=== PATIENT | female | born 1945 | race Caucasian/White ===

== ENCOUNTER → 2016-08-07 | Outpatient (CLI) | payer MEDICARE ==
[~2016-08-07] MED LIST: CALCTAB7 PO; CIPR500T89 PO; GREE400C PO; LOMO2.5T PO; OMEP20CA3 PO; PRED1TA PO; PRED1TABL PO; REGL10TA6 PO; SIMV40TA2 PO; TYLE325T5 PO; VITAD1000T PO
--- NOTE | 2016-08-07 11:31 | REPMRS ---
Patient History The patient states she has not had a clinical breast exam in over a year. Patient is postmenopausal. Family history of breast cancer in maternal cousin at age 50 or over. Digital Woman Screen Mammo: August 07, 2016 - Exam #: [id number] Bilateral CC and MLO view(s) were taken. Technologist: Zulma Butterfield, Technologist Prior study comparison: July 20, 2015, left breast digital mammo diagnostic unilateral, performed at [facility]. July 05, 2015, digital woman screen mammo performed at [facility]. FINDINGS: There are scattered fibroglandular densities. There has been no change in the appearance of the mammogram from the prior studies. There is a mild amount of residual fibroglandular tissue which is fairly symmetric. There is no interval development of dominant mass, architectural distortion, or clustered microcalcification suggestive of malignancy. ASSESSMENT: BI-RADS/ACR category 1 mammogram. Negative. Recommendation Routine screening mammogram in 1 year (for women over age 40). This mammogram was interpreted with the aid of an FDA-approved computer-aided dectection system. Electronically Signed By: Ramon Dennison MD 08/07/16 [id number]
== END ==
LOC: M WHC 09:50
PROVIDERS: ATTEND Nurse Practitioner Adult Health
DX: Z12.31 Encounter for screening mammogram for malignant neoplasm of breast (principal)

== ENCOUNTER 2020-04-20 12:56 | Emergency (ER) | payer MEDICARE ==
[~2020-04-20] VITALS: Ht 147.3 cm; Wt 100.0 kg
[~2020-04-20 12:56] MED LIST changes: -PRED5TA
[2020-04-20] MEDS ORDERED: PRED5TA (13:05)
--- NOTE | 2020-04-20 14:24 | REP ---
INDICATION: RUQ pain, gallstones before COMPARISON: None. TECHNIQUE: Real time kaiser scale ultrasound examination using curved array transducer. FINDINGS: Gallbladder demonstrates gallstones measuring up to 2.2 cm without significant wall thickening or pericholecystic fluid. No biliary ductal dilatation is appreciated and the common bile duct measures 5 mm diameter. Liver suggests fatty infiltration. The pancreas appears normal. The right kidney is normal in reniform shape without hydronephrosis and measures 9.7 x 4.9 x 4.4 cm. No ascites in the visualized right upper quadrant. IMPRESSION: 1. Cholelithiasis 2. Hepatosteatosis <Electronically signed by Uche Colon > 04/20/20 [id number]
[2020-04-20 14:41] LABS: BASO % 0.3 % (0.0-1.0); EOS % 0.4 % (0.0-3.0); HEMATOCRIT 40.7 % (36.0-47.0); HEMOGLOBIN 12.9 g/dl (12.0-15.5); LYMPH # 1.1 10^3/uL (1.5-5.0); LYMPH % 11.1 % (24.0-44.0); MEAN CORPUSCULAR HGB CONC 31.7 g/dl (32.0-36.5); MEAN CORPUSCULAR VOLUME 94.7 fl (80.0-96.0); MONO # 0.6 10^3/uL (0.0-0.8); MONO % 5.7 % (0.0-5.0); NEUTROPHILS # 8.5 10^3/uL (1.5-8.5); NEUTROPHILS % 82.2 % (36.0-66.0); PLATELET COUNT, AUTOMATED 328 10^3/uL (150-450); WHITE BLOOD COUNT 10.3 10^3/uL (4.0-10.0)
[2020-04-20 15:04] LABS: ALBUMIN 3.4 GM/DL (3.2-5.2); ALT/SGPT 12 U/L (12-78); BILIRUBIN,DIRECT 0.1 MG/DL (0.0-0.2); BILIRUBIN,TOTAL 0.4 MG/DL (0.2-1.0); BLOOD UREA NITROGEN 12 MG/DL (7-18); CALCIUM LEVEL 8.8 MG/DL (8.8-10.2); CARBON DIOXIDE LEVEL 30 MEQ/L (21-32); CHLORIDE LEVEL 104 MEQ/L (98-107); CREATININE FOR GFR 0.71 MG/DL (0.55-1.30); GLOMERULAR FILTRATION RATE > 60.0 (>39); GLUCOSE, FASTING 114 MG/DL (70-100); LIPASE 55 U/L (73-393); SODIUM LEVEL 141 MEQ/L (136-145); TOTAL PROTEIN 6.5 GM/DL (6.4-8.2)
[2020-04-20 15:08] LABS: CK-MB VALUE MASS 2.4 NG/ML (<3.6); CPK CREATINE PHOSPHOKINASE 68 U/L (26-192); MB/CK RELATIVE INDEX 3.53 (< OR =4); TROPONIN I < 0.02 NG/ML (< 0.10)
[2020-04-20 15:18] VITALS: BP 138/79
== END 2020-04-20 15:20 | disposition home or self-care (01) ==
LOC: M ED 12:56
DX: K80.20 Calculus of gallbladder without cholecystitis without obstruction (principal); K76.0 Fatty (change of) liver, not elsewhere classified; R11.0 Nausea; I10 Essential (primary) hypertension; E78.5 Hyperlipidemia, unspecified; M81.0 Age-related osteoporosis without current pathological fracture; Z88.2 Allergy status to sulfonamides; Z79.899 Other long term (current) drug therapy

== ENCOUNTER → 2020-04-20 | Outpatient (REF) | payer MEDICARE ==
[~2020-04-20] MED LIST changes: +PRED5TA
[2020-04-20 17:52] LABS: H PYLORI QUALITATIVE IgG NEGATIVE (NEGATIVE)
== END ==
LOC: M LAB REF 16:14
PROVIDERS: ATTEND Nurse Practitioner Adult Health
DX: R10.9 Unspecified abdominal pain (principal)

== ENCOUNTER → 2020-05-14 | Outpatient (CLI) | payer MEDICARE ==
[~2020-05-14] MED LIST changes: +GASTROGRAFIN SOLUTION 30ML (Q9963) As Ordered ONE; +HYDR-3713 PO; +ISOVUE-370 76% 100ML VIAL As Ordered ONE; +PRED10PA PO; +PRED5TA; +PRIL20TA2 PO; +ZOFR4TAB16 PO
--- NOTE | 2020-05-14 14:44 | REP ---
INDICATION: GENERALIZED ABDOMINAL PAIN. COMPARISON: 09/12/2012. TECHNIQUE: Oral contrast was administered. CT abdomen performed without IV contrast. CT abdomen and pelvis performed with the intravenous administration of 100 cc of Isovue 370. Sagittal and coronal reconstruction images are performed. FINDINGS: Lung bases: Mild fibrotic changes. Liver: There appears to be a subcentimeter cyst at the right dome of the liver and another is seen in the left lobe. Gallbladder: 1.8 cm gallstone with no gallbladder wall thickening and no evidence of significant biliary dilatation. Spleen: Normal. Adrenals: There is invasion of the left adrenal gland by a left retroperitoneal mass. Pancreas: Normal. Kidneys: Normal. Small and large bowel: There are few sigmoid diverticula present. There is no bowel wall thickening. There is no free intraperitoneal air. Free fluid: None. Abdominal aorta: No aneurysm or dissection. Adenopathy/retroperitoneum: There is a very large lobulated soft tissue mass in the left retroperitoneum at the level of the kidneys with its epicenter at about the level of the main left renal artery. That renal artery is encased and severely narrowed. The main left renal vein is also severely narrowed and there is likely invasion. The mass diffusely involves the left psoas muscle at that level. It abuts but does not appear to invade the adjacent left kidney. It abuts the abdominal aorta with obliteration of the fat plane along the left side of the abdominal aorta. The abdominal aorta is displaced toward the right at that level. The mass abuts the L2 vertebral body, with no definite destruction. There is no fat plane between the vertebral body and mass. This mass extends superiorly and invades the inferior aspect of the left adrenal gland. The anterior aspect abuts, but does not invade the pancreas. The mass abuts the celiac artery and superior mesenteric artery. The inferior extent is at about the level of the superior aspect of L5. At that level it is within the left psoas muscle. No other adenopathy is seen. Appendix: Not inflamed. Osseous structures: There are degenerative changes of the spine without compression deformity. Pelvis: There is a bulbous appearance to the cervix with an oval hypoechoic dense abnormality likely representing a mass of the cervix. This measures approximately 2.9 x 4.7 cm. IMPRESSION: Very large left retroperitoneal mass as discussed in detail above encasing and severely narrowing the main left renal artery. There is also narrowing and probable invasion of the main left renal vein. There is diffuse involvement of the left psoas muscle. The fat plane with the adjacent abdominal aorta is obliterated. The extends superiorly and invades the left adrenal gland. There appears to be a mass in the cervix as discussed above. This raises the possibility that the left retroperitoneal mass is metastatic from the cervix. <Electronically signed by Ramon Dennison > 05/14/20 [id number]
== END ==
LOC: M RAD 11:09
PROVIDERS: ATTEND Surgery
DX: D48.3 Neoplasm of uncertain behavior of retroperitoneum (principal)
CPT/HCPCS: 74178; Q9963; Q9967

== ENCOUNTER → 2020-05-28 | Outpatient (REF) | payer MEDICARE ==
[~2020-05-28] MED LIST changes: -GASTROGRAFIN SOLUTION 30ML (Q9963) As Ordered ONE; -ISOVUE-370 76% 100ML VIAL As Ordered ONE
[2020-05-28 13:19] LABS: INR 1.01; PROTHROMBIN TIME 13.5 SECONDS (12.5-14.3)
[2020-05-28 13:20] LABS: PARTIAL THROMBOPLASTIN TIME 36.2 SECONDS (24.2-38.5)
== END ==
LOC: M LAB REF 12:29
PROVIDERS: ATTEND Nurse Practitioner Adult Health
DX: Z01.818 Encounter for other preprocedural examination (principal); Z79.01 Long term (current) use of anticoagulants

== ENCOUNTER → 2020-06-01 | Outpatient (CLI) | payer MEDICARE ==
[~2020-06-01] MED LIST changes: +LIDOCAINE 1% MDV 20ML VIAL As Ordered ONE
[2020-06-01 10:30] VITALS: BP 112/55
--- NOTE | 2020-06-01 17:01 | REP ---
INDICATION: RETROPERITONEAL MASS. COMPARISON: None. TECHNIQUE: The procedure was performed under the direct supervision of Dr. Davalos. The patient has a history of a very large left retroperitoneal mass seen on a previous CT scan dated 05/14/2020. The risks and benefits of the procedure were explained to the patient and informed consent was obtained. The left retroperitoneal mass was localized using CT guidance. The skin was prepped and draped in a sterile fashion. 1% lidocaine was used as a local anesthetic. Using CT guidance a 19/20 gauge coaxial needle biopsy system was inserted and advanced into the mass. Five core biopsy samples were obtained and sent the lab. The patient tolerated the procedure well and there were no immediate complications. After the appropriate amount to monitor convalescence the patient was discharged from the department. FINDINGS: None IMPRESSION: CT-guided left retroperitoneal mass biopsy. <Electronically signed by Andrea Sher > 06/01/20 [id number] <Electronically signed by Mason Davalos > 06/01/20 [id number]
== END ==
LOC: M IRPRO 07:55
PROVIDERS: ATTEND Nurse Practitioner Adult Health
DX: C78.6 Secondary malignant neoplasm of retroperitoneum and peritoneum (principal); R19.00 Intra-abdominal and pelvic swelling, mass and lump, unspecified site

== ENCOUNTER → 2020-07-08 | Outpatient (CLI) | payer MEDICARE ==
[~2020-07-08] MED LIST changes: +ACET650T15 PO; +ALEN70SO PO; +CALCCAP4 PO; +CVS50CAP PO; +LACT20EL PO; -LIDOCAINE 1% MDV 20ML VIAL As Ordered ONE; +NEUR100C PO; +PROC10TA4 PO
--- NOTE | 2020-07-08 16:50 | RADONC.CN ---
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 She is seen for consideration of palliative RT. Diagnosis/Treatment History Oncologic History Presented to [facility] ED with abdominal pain on 04/20/20 had RUQ US which was negative. Pain persisted and CT abdomen on 05/14/20 revealed a large left flank mass narrowing the left renal artery and encasing the aorta as well as a question of cervical versus uterine lobulated mass. She had biopsy of the flank mass on 06/01/20 which showed carcinoma with sarcomatoid features. She had a colposcopy with Dr. Rosa 06/23/20 which showed a normal cervix. She was referred to Dr. Espinoza for consideration of chemotherapy (carbo/taxol) for this presumed gynecologic malignancy. 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 The evidence so far suggests high grade carcinoma, however further work up is needed to determine the site of origin. The case was sent to [facility] for consultation. Per report, the lesional cells are positive for CK7 and vimentin, and negative for SMA, ER, CK20, PAX-8, desmin and WT-1. Further clinical correlation to rule out sarcomatoid carcinoma and carcinosarcoma or malignant mixed mullerian tumor of the cervix or uterine corpus is recommended. Please see the scanned documentation for the full surgical pathology consultation report ([id number]). Interval History Maria G is here with her in person and daughters via phone. She complains of constant nausea, without vomiting and poor appetite. She has lost 30 lbs. She is taking zofran 8 mg TID with some effect but still feels some nausea between doses. For pain it is located in the mid back slightly left sided and radiates downward. It is 5-6/10 at rest and up to 10/10 when worst. It is improved with norco, she is taking 5 mg q6h which makes it tolerable. She denies any bleeding from her urine or from below. She is eating quite infrequently and only very small amounts. Yesterday was a peach and a small amount of cottage cheese. Past Medical History: Arthritis Obsesity DMII HTN PMR on prednisone chronically Past Surgical History: Right knee replacement Family History: Son cancer unknown type Social History: Never smoker Non-drinker Allergies / Meds Allergies: Coded Allergies: Sulfa (Sulfonamide Antibiotics) (Verified Allergy, Unknown, 04/20/20) Home Meds Active Scripts Prochlorperazine Maleate (Prochlorperazine Maleate) 10 Mg Tablet, 1 TAB PO Q4HP for Nausea for 15 Days, #90 TAB 2 Refills Take in between scheduled zofran doses Prov:RUBENS FRANKS MD 07/08/20 Lactulose (Lactulose) 10 Gm/15 Ml Solution, 30 ML PO BID for constipation for 7 Days, #1.8 L 0 Refills Prov:BHAVANI ARELLANO MD 07/06/20 Reported Medications Gabapentin (Neurontin) 100 Mg Capsule, 1 CAP PO TID for 30 Days, #90 CAP 07/06/20 Calcium Carbonate/Vitamin D3 (Calcium 600 + Vit D 400 Softgl) 1 Each Capsule, 2 CAP PO BID for 30 Days, #120 CAP 07/06/20 Alendronate Sodium (Alendronate Sodium) 70 Mg/75 Ml Solution, 70 MG PO, TIRSO 07/06/20 Docusate Sodium (Stool Softener) Unknown Strength Capsule, PO BID for constipation for 30 Days, CAP 07/06/20 Acetaminophen (Acetaminophen ER) 650 Mg Tablet.er, 1 TAB PO TID for 21 Days, #63 TAB 07/06/20 Omeprazole Magnesium (Prilosec Otc) 20 Mg Tablet.dr, 20 MG PO DAILY for 30 Days, #30 TAB 05/31/20 Hydrocodone/Acetaminophen (Hydrocodone-Acetamin 5-325 mg) 1 Each Tablet, 1 TAB PO Q6H PRN for PAIN, TAB MDD 4 05/31/20 Ondansetron HCl (Zofran) 4 Mg Tablet, 1 TAB PO Q6-8HP PRN for nausea/vomiting for 2 Days, #5 TAB 05/31/20 Prednisone (Prednisone) 10 Mg Tab.ds.pk, 1 TAB PO DAILY for 5 Days, #1 DP 05/31/20 Discontinued Reported Medications Acetaminophen (TYLENOL) 325 Mg Tab, 650 MG PO PRN 5/16/13 Simvastatin (SIMVASTATIN) 40 Mg Tab, 40 MG PO QPM 09/12/12 Review of Systems Constitutional: Reports: Fatigue, Weight Loss Eyes: Denies: Pain HEENT: Denies: Head Aches Skin: Denies: Rash Pulmonary: Denies: Dyspnea, Cough Cardiovascular: Denies: Chest Pain, Palpitations Gastrointestinal: Reports: Nausea, Abdominal Pain; Denies: Vomiting, Hematochezia Genitourinary: Denies: Hematuria Hematologic: Denies: Bruising, Bleeding Excessively Musculoskeletal: Reports: Back pain; Denies: Neck pain Neurological: Denies: Weakness, Numbness Vital Signs Ht 59" Wt 196 lbs BMI 40 T 98 P 117 RR 18 BP 127/75 O2 99% Pain 10 Fatigue 1 General Exam: Positive: Alert, Cooperative, Mild Distress Eye Exam: Positive: PERRLA, EOMI ENT EXAM: Positive: Mucous membr. moist/pink, Pharynx Normal Neck Exam: Negative: Thyromegaly, Lymphadenopathy Chest Exam: Positive: Normal air movement; Negative: Rales, Rhonchi, Wheezing Heart Exam: Positive: Rate Normal, Regular Rhythm Abdomen Exam: Positive: Soft; Negative: Tenderness, Mass (Unable to palpate abdominal mass due to habitus. There is mild left flank tenderness) Extremity Exam: Positive: Edema Skin Exam: Positive: Nl turgor and temperature; Negative: Rash Neuro Exam: Positive: Normal Speech, Cranial Nerves 3-12 NL Psych Exam: Positive: Mental status NL Diagnostic and Laboratory Diagnostic Review Radiologic images, relevant labs and pathology reports were personally reviewed and discussed with Ms. Montoya. Assessment and Plan Impression Ms. 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 She is seen for consideration of palliative RT. 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 Montoya regarding the diagnosis at hand and available therapeutic options. I reviewed her workup and imaging to date. They note Dr. Espinoza has ordered a CT chest to complete staging which will be done tomorrow AM. 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 Rosa. Hysteroscopy is not likely needed and an intravaginal US could resolve this point of origin, but overall such diagnostics may prove moot as the plan is unlikely to change from carbo/taxol in the frontline setting as with most gynecologic cancers. With respect to the left flank mass it is very large [id number] cm and encases several major vessels, it is the probable cause of her pain as there are no bone lesions discernible on her CT scans. I think it will be challenging to palliate this but would not hesitate to try RT. I will give 10 fractions of treatment and base the final dose per fraction on the tolerances of surrounding organs at risk (bowel and left kidney, chief among them) rather than on an empiric schedule, that said 30 Gy in 10 fractions may ultimately prove safest, but I will try for more. I explained that some regression of the lesion and a positive pain response would be the goal but ultimately that RT is not known to affect survival in this setting. They asked about surgical resection of the mass, which I explained would not be feasible due to her age, BMI and the involved major vessels. We will proceed with RT, which should not delay the start of chemotherapy as the regimens together are generally compatible. We discussed the logistics of receiving radiation therapy in detail including the need for a 1-time planning session. This will occur early the week of 07/12/20. We reviewed the side effect of treatment including, nausea, fatigue, and diarrhea all of which would be expected to be mild. The possibility of damage to the left kidney was also discussed, however I will respect known kidney tolerances in planning the RT. After discussing the risks, benefits and alternatives to radiation therapy, Ms. Montoya was amenable to pursuing radiotherapy. All questions were answered to the patient's satisfaction. We instructed the patient that if there were any questions,concerns or changes in clinical status in the interim to contact us. Recommendations Palliative RT to left flank mass, 30-40 Gy in 10 fractions anticipated w/ DCA planning and daily CBCT Simulation week of 07/12/20 Compazine 10 mg PRN in addition to scheduled zofran for nausea Billing Statement Total time of [44] minutes was spent preparing for the visit [3], obtaining HPI [5], examining the patient [3], reviewing diagnostic tests [5], discussing management options [20], coordinating care [2], and writing this note [6]. RUBENS FRANKS MD Jul 08, 2020 16:50
== END ==
LOC: M ONCR 14:21
PROVIDERS: ATTEND General Practice
DX: C79.89 Secondary malignant neoplasm of other specified sites (principal)

== ENCOUNTER → 2020-07-09 | Outpatient (CLI) | payer MEDICARE ==
[~2020-07-09] MED LIST changes: +ISOVUE-370 76% 100ML VIAL As Ordered ONE
--- NOTE | 2020-07-09 08:54 | REP ---
INDICATION: MET CA COMPARISON: None TECHNIQUE: Axial contrast enhanced images from the thoracic inlet to the upper abdomen with coronal and sagittal reformations using 75 ml Isovue 370 intravenous contrast material. This CT examination was performed using the following dose reduction techniques: Automated exposure control, adjustment of mA and/or kv according to the patient's size, and use of iterative reconstruction technique. FINDINGS: 11 mm nodule at the left apex and 5 mm nodule in the left mid lung zone (image 38) are appreciated along with minimal left basilar atelectasis and small left pleural effusion. No significant acute adenopathy. Calcified right hilar lymph nodes and right upper lobe granuloma are identified and suggest prior granulomatous disease. IMPRESSION: 5 mm and 11 mm noncalcified nodules identified along with minimal left basilar atelectasis and small left pleural effusion. No prior examinations are available for comparison. Consider 3 month follow-up and/or PET-CT for further investigation. <Electronically signed by Uche Colon > 07/09/20 0870
== END ==
LOC: M RAD 07:59
PROVIDERS: ATTEND Internal Medicine Hematology & Oncology
DX: C79.89 Secondary malignant neoplasm of other specified sites (principal)
CPT/HCPCS: 71260; Q9967

== ENCOUNTER → 2020-07-28 | Outpatient (CLI) | payer MEDICARE ==
[~2020-07-28] MED LIST changes: -ISOVUE-370 76% 100ML VIAL As Ordered ONE; +LIDO2.5C15 TOP; +LIDOCAINE 1% MDV 20ML VIAL As Ordered ONE; +MIDAZOLAM INJ 2MG/2ML VIAL (J2250 PER 1MG) As Ordered ONE; +NS 1,000 ML IV SCH; +ONDA8TAB10 PO; +ONDA8TAB8 PO; +PROMETHAZINE INJ 25 MG/ML VIAL (J2550) As Ordered ONE; +ceFAZolin 1GM VIAL (J0690 PER 500MG) As Ordered ONE; +ceFAZolin SOD 2 GM in IV 1 EA IV ONE; +diazePAM 10MG/2ML SYRINGE (J3360 PER 5MG) IV ONE; +diphenhydrAMINE 50MG/ML VIAL (J1200) As Ordered ONE; +fentaNYL 100 MCG/2 ML INJECTION (J3010) As Ordered ONE
--- NOTE | 2020-07-28 14:59 | IRHP ---
[facility] IR Pre-Procedure H & P General Date of Service: Jul 28, 2020 Procedure: Same Day Surgery Interval History and Physical I have seen the patient and reviewed last H & P performed within 30 days. There is no significant interval change. History of Present Illness Chief Complaint The patient is a 74-year-old female admitted with a reason for visit of Metastatic Cardinosarcoma. PRE-PROCEDURE DIAGNOSIS: Carcinosarcoma HEART: Normal rate. LUNGS: Normal breathing at rest. ASA Classification ASA Classification: III-Severe systemic dis. Mallampati Score: II NPO: Yes Problems with prior sedation: No Obstructive Sleep Apnea: No Plan moderate sedation Allergies Coded Allergies: Sulfa (Sulfonamide Antibiotics) (Verified Allergy, Unknown, 04/20/20) Home Medications Scheduled Acetaminophen (Acetaminophen ER), 1 TAB PO TID, (Reported) Calcium Carbonate/Vitamin D3 (Calcium 600 + Vit D 400 Softgl), 2 CAP PO BID, (Reported) Docusate Sodium (Stool Softener), Unknown Dose PO BID, (Reported) Gabapentin (Neurontin), 1 CAP PO TID, (Reported) Lactulose (Lactulose), 30 ML PO BID Omeprazole Magnesium (Prilosec Otc), 20 MG PO DAILY, (Reported) Ondansetron HCl (Ondansetron HCl), 1 TAB PO TID Prednisone (Prednisone), 1 TAB PO DAILY, (Reported) Prochlorperazine Maleate (Prochlorperazine Maleate), 1 TAB PO Q4HP Scheduled PRN Hydrocodone/Acetaminophen (Hydrocodone-Acetamin 5-325 mg), 1 TAB PO Q6H PRN for PAIN, (Reported) Prochlorperazine Maleate (Prochlorperazine Maleate), 10 MG PO Q4HP PRN for NAUSEA OR VOMITING Miscellaneous Medications Alendronate Sodium (Alendronate Sodium), 70 MG PO, (Reported) Discontinued Medications Ondansetron (Ondansetron Odt), 1 TAB PO TID Ondansetron HCl (Zofran), 1 TAB PO Q6-8HP PRN for nausea/vomiting, (Reported) JAGRUTI SANTACRUZ MD Jul 28, 2020 14:59
[2020-07-28 17:33] VITALS: BP 112/55
--- NOTE | 2020-07-29 08:41 | IRPON ---
IR Postoperative Note Date Of Procedure: Jul 28, 2020 Time Of Procedure: 16:00 IR Postoperative Note IR Ultrasound and fluoroscopy guided port placement IR Ultrasound of the neck. IR Moderate sedation. Clinical indication: Carcinosarcoma. Physician: Dr. Bishop. Procedure: The patient was advised of the benefits, risks, and alternatives of the procedure and informed consent was obtained. A time-out was performed with verification of the patient's name, MRN, site of procedure and type of procedure to be performed. The patient was positioned in the supine position on the angiographic table. The site was prepped and draped in the usual sterile fashion. Moderate sedation was performed by the physician including the presence of an independent trained RN who assisted and monitored the patient's level of consciousness and physiologic status. Following the administration of fentanyl and Versed , the physician spent 45 minutes of continuous face to face time with the patient. Ultrasound of the neck reveals a patent and compressible right internal jugular vein. A rn cvor radiograph reveals no gross abnormality. The neck and anterior chest wall were anesthetized with lidocaine. The right internal jugular vein was accessed using a microintroducer needle under ultrasound guidance, via a lateral approach. An 018 wire was advanced into the superior vena cava, the needle was removed and a microsheath was placed. An Amplatz wire was then passed into the inferior vena cava. An incision at the internal jugular vein access site and anterior chest wall were made using a scalpel. An incision was made at the anterior chest wall. A small pocket was created using a combination of blunt and sharp dissection. A tunneling device was then used to pass the catheter from the pocket to the neck puncture site. An 8- Indonesian Angio gopogo Smart power port was then positioned in the pocket. The catheter was then measured and cut. The introducer sheath was exchanged for a peel-away sheath. The catheter was passed through the peel-away sheath into the internal jugular vein and the peel-away sheath was removed. The port tip was positioned at the cavoatrial junction. The port was then accessed with a Pollock needle. The port flushes and aspirates well. The puncture site in the neck was closed. The chest wall incision was then closed with 2-0 Vicryl and 4-0 Monocryl. Glue and Steri- Strips were applied. A sterile dressing was then applied. The patient tolerated the procedure well and was returned to the PRU in stable condition. Estimated blood loss: <5 ml. Complications: None. Conclusion: 1. Successful placement of an 8-Indonesian Angio dynamics Smart power port via the right internal jugular vein. The port is ready for immediate use. 2. Patient to follow up in IR clinic in 2 weeks. Thank you for this referral. JAGRUTI BISHOP MD Jul 29, 2020 08:41
== END ==
LOC: M IRPRO 14:25
PROVIDERS: ATTEND Internal Medicine Hematology & Oncology
DX: C80.1 Malignant (primary) neoplasm, unspecified (principal); Z79.899 Other long term (current) drug therapy; Z88.2 Allergy status to sulfonamides

== ENCOUNTER → 2020-07-28 | Outpatient (RCR) | payer MEDICARE ==
[~2020-07-28] MED LIST changes: -LIDO2.5C15 TOP; -LIDOCAINE 1% MDV 20ML VIAL As Ordered ONE; +LORazepam 2 MG/ML VIAL IM STA; -MIDAZOLAM INJ 2MG/2ML VIAL (J2250 PER 1MG) As Ordered ONE; -NS 1,000 ML IV SCH; -PROMETHAZINE INJ 25 MG/ML VIAL (J2550) As Ordered ONE; -ceFAZolin 1GM VIAL (J0690 PER 500MG) As Ordered ONE; -ceFAZolin SOD 2 GM in IV 1 EA IV ONE; -diazePAM 10MG/2ML SYRINGE (J3360 PER 5MG) IV ONE; -diphenhydrAMINE 50MG/ML VIAL (J1200) As Ordered ONE; -fentaNYL 100 MCG/2 ML INJECTION (J3010) As Ordered ONE
== END ==
LOC: M ONCR 07-14 10:59
PROVIDERS: ATTEND General Practice
DX: C78.6 Secondary malignant neoplasm of retroperitoneum and peritoneum (principal)
CPT/HCPCS: 77290; 77295; 77300; 77334; 77387; 77412; J2060

== ENCOUNTER 2020-08-05 11:00 | Outpatient (RCR) | payer MEDICARE ==
[~2020-08-05 11:00] MED LIST changes: -LORazepam 2 MG/ML VIAL IM STA
[2020-08-11] MEDS ORDERED: LIDO2.5C15 TOP (14:19)
[2020-08-16] MEDS ORDERED: POTA8TAB8 PO (16:03)
[2020-08-23] MEDS ORDERED: DRON5CAP13 PO (11:42)
[2020-08-25] MEDS ORDERED: PRED5TA PO (18:05)
[2020-08-25] MEDS ORDERED: ZOFR4TAB16 PO (18:05)
[2020-08-25] MEDS ORDERED: OMEP1CAP73 PO (18:05)
== END 2020-08-27 ==
LOC: M ONCR 11:00
PROVIDERS: ATTEND General Practice
DX: C78.6 Secondary malignant neoplasm of retroperitoneum and peritoneum (principal)

== ENCOUNTER → 2020-08-17 | Outpatient (POV) | payer MEDICARE ==
[~2020-08-17] VITALS: Ht 144.8 cm; Wt 82.7 kg
[~2020-08-17] MED LIST changes: +LIDO2.5C15 TOP; +POTA8TAB8 PO
[2020-08-17 09:42] VITALS: BP 123/74
--- NOTE | 2020-08-20 08:23 | IRPN ---
[facility] IR Progress Note IR Progress Note DATE: Aug 17, 2020 FOLLOW-UP: Patient is status post recent port placement. Patient states the first time the port was used, it worked. But then the last 2 times it was accessed, it did not work. She denies fevers or chills. She denies neck swelling or pain. ON EXAMINATION: Port site appears to be healing well. No redness, fluctuance, exposure or discharge. The port was accessed in a sterile manner. Blood could not be aspirated. IMPRESSION: Patient was referred for TPA infusion to our infusion department. After 2 cycles of TPA, the port reportedly aspirated and flushed well. Continue to use the port, flush with heparinized saline after each use. No further follow-up scheduled unless initiated by patient and/or referring provider. Thank you for this referral. Cc Dr. Javier Valentine Allergies Coded Allergies: Sulfa (Sulfonamide Antibiotics) (Verified Allergy, Unknown, 04/20/20) VS,Fishbone, I+O VS, Fishbone, I+O Vital Signs Date Time Temp Pulse Resp B/P (MAP) Pulse Ox O2 Delivery O2 Flow Rate FiO2 08/17/20 09:42 96.7 104 20 123/74 (90) 97 Room Air JAGRUTI SANTACRUZ MD Aug 20, 2020 08:23
== END ==
LOC: M IRPOV 09:16
PROVIDERS: ATTEND Radiology Diagnostic Radiology
DX: Z45.2 Encounter for adjustment and management of vascular access device (principal); T82.868A Thrombosis due to vascular prosthetic devices, implants and grafts, initial encounter; X58.XXXA Exposure to other specified factors, initial encounter

== ENCOUNTER 2020-08-18 09:05 | Outpatient (CLI) | payer MEDICARE ==
[~2020-08-18] VITALS: Ht 147.3 cm; Wt 82.7 kg
[~2020-08-18 09:05] MED LIST changes: +LIDO1CRE42 TOP; -LIDO2.5C15 TOP; +SODIUM CHLORIDE 0.9% INJ 10 ML SYR IV PRN; +SODIUM CHLORIDE 0.9% INJ 10 ML SYR IV SCH
[2020-08-18 09:25] VITALS: BP 105/61
[2020-08-18] MEDS: ALTEPLASE 2MG/2ML VIAL XX SCH ×2 (09:32→10:20)
[2020-08-18 11:25] VITALS: BP 101/57
[2020-09-06] MEDS ORDERED: ALPR0.25 PO (11:36)
[2020-09-08] MEDS ORDERED: POTA8CAP10 PO (09:37)
[2020-09-13] MEDS ORDERED: DEXA4TA PO (12:19)
[2020-09-13] MEDS ORDERED: PROC10TA4 PO (12:26)
[2020-09-28] MEDS ORDERED: METO1TAB32 PO (15:33)
[2020-10-18] MEDS ORDERED: PROB250C PO (09:36)
[2020-11-12] MEDS ORDERED: MS C30TA6 PO (10:24)
[2020-11-12] MEDS ORDERED: OXYC1TAB23 PO (10:31)
[2020-11-12] MEDS ORDERED: [UNRECOGNIZED DRUG - CODE] PO ×2 (11:02→11:03)
== END 2020-08-18 11:30 | disposition home or self-care (01) ==
LOC: M INFU 09:05
PROVIDERS: ATTEND Radiology Diagnostic Radiology
DX: C48.0 Malignant neoplasm of retroperitoneum (principal); Z88.2 Allergy status to sulfonamides
CPT/HCPCS: 36593; J1642; J2997

== ENCOUNTER 2020-08-25 12:53 | Inpatient (IN) | payer MEDICARE ==
[~2020-08-25] VITALS: Ht 144.8 cm; Wt 81.9 kg
[~2020-08-25 12:53] MED LIST changes: +DRON5CAP13 PO; -LIDO1CRE42 TOP; +LIDO2.5C15 TOP; -SODIUM CHLORIDE 0.9% INJ 10 ML SYR IV PRN; -SODIUM CHLORIDE 0.9% INJ 10 ML SYR IV SCH
--- NOTE | 2020-08-25 14:45 | REP ---
INDICATION: palpitations. COMPARISON: Comparison chest x-ray September 12, 2012. TECHNIQUE: Two views.. FINDINGS: There is a right-sided internal jugular vein Ozfvil-X-Ppor catheter with its tip in the expected location of the superior vena cava. EKG monitoring electrodes overlie the chest. There is blunting of the left lateral and posterior pleural angle indicating a small left pleural effusion. The heart is enlarged. Pulmonary vasculature is not increased. There is an oblique linear density overlying the right mid lung zone which is likely artifactual. There are degenerative disc changes in the thoracic spine and osteoarthritic changes are seen in the shoulders. IMPRESSION: Small left pleural effusion. Right-sided Hzhexj-N-Yiwk catheter. Cardiomegaly.. <Electronically signed by Mason Davalos > 08/25/20 [id number]
[2020-08-25] MEDS ORDERED: NS 500 ML IV ONE (15:05)
[2020-08-25 15:13] LABS: BASO % 0.1 % (0.0-1.0); EOS % 0.2 % (0.0-3.0); HEMATOCRIT 27.1 % (36.0-47.0); HEMOGLOBIN 8.4 g/dl (12.0-15.5); LYMPH # 1.1 10^3/uL (1.5-5.0); LYMPH % 10.7 % (24.0-44.0); MEAN CORPUSCULAR HEMOGLOBIN 27.5 pg (27.0-33.0); MEAN CORPUSCULAR VOLUME 88.6 fl (80.0-96.0); MONO # 0.4 10^3/uL (0.0-0.8); MONO % 3.6 % (2.0-8.0); NEUTROPHILS # 8.7 10^3/uL (1.5-8.5); NEUTROPHILS % 84.4 % (36.0-66.0); PLATELET COUNT, AUTOMATED 195 10^3/uL (150-450); RED BLOOD COUNT 3.06 10^6/uL (4.00-5.40); WHITE BLOOD COUNT 10.3 10^3/uL (4.0-10.0)
[2020-08-25 15:42] LABS: ALBUMIN 2.3 GM/DL (3.2-5.2); ALT/SGPT 11 U/L (12-78); BILIRUBIN,DIRECT < 0.1 MG/DL (0.0-0.2); BILIRUBIN,TOTAL 0.3 MG/DL (0.2-1.0); BLOOD UREA NITROGEN 14 MG/DL (7-18); CALCIUM LEVEL 8.4 MG/DL (8.8-10.2); CARBON DIOXIDE LEVEL 31 MEQ/L (21-32); CHLORIDE LEVEL 101 MEQ/L (98-107); CK-MB VALUE MASS < 1.0 NG/ML (<3.6); CPK CREATINE PHOSPHOKINASE 11 U/L (26-192); CREATININE FOR GFR 0.65 MG/DL (0.55-1.30); GLOMERULAR FILTRATION RATE > 60.0 (>39); GLUCOSE, FASTING 124 MG/DL (70-100); MAGNESIUM LEVEL 1.4 MG/DL (1.8-2.4); MB/CK RELATIVE INDEX 9.09 (< OR =4); NT-PRO BNP 1293 PG/ML (<450); POTASSIUM SERUM 3.3 MEQ/L (3.5-5.1); SODIUM LEVEL 138 MEQ/L (136-145); THYROXINE (T4) 6.6 UG/DL (4.5-12.0); TOTAL PROTEIN 5.1 GM/DL (6.4-8.2); TROPONIN I 0.02 NG/ML (< 0.10)
[2020-08-25] MEDS ORDERED: MAG SULF 1GM/100ML (MAG RUN) 1 GM in IV 1 EA IV ONE (17:00)
[2020-08-25 17:26] LABS: RSV AMPLIFICATION NEGATIVE (NEGATIVE)
[2020-08-25] MEDS ORDERED: POTASSIUM CHLORIDE 10 MEQ SR TABLET PO ONE (17:35)
[2020-08-25] MEDS ORDERED: ONDANSETRON 4MG/2ML VIAL IV PRN (17:35)
[2020-08-25] MEDS ORDERED: ACETAMINOPHEN TAB 650MG DOSE (2X325MG) PO PRN (17:35)
[2020-08-25] MEDS ORDERED: NS 1,000 ML IV SCH (17:50)
--- NOTE | 2020-08-25 17:59 | HPEPDOC ---
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 She presents to the ED for weakness, persistent diarrhea, nausea and a fast heartbeat and found to have el ectrolyte derangements with a mag of 1.4, K 3.3, na 138 while Cr was 0.65, WBC 10.3, Hgb 8.4, platelets 195, UA was bland, LFTS were wnl, proBNP was 1293 and CXR showed a small L pleural effusion. She is now being admitted for evaluation and management of chronic diarrhea, likely 2/2 recent radiation, repletion of electrolytes and hydration. She otherwise denies any recent fever, chills, bloody stool, bloody emesis, travel, sick contacts, chest pain and reports that since her radiation her abdominal and back pain improved. 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 SOCIAL HISTORY: Tobacco use: No ETOH: No Illicit drug use: No FAMILY HISTORY: ALLERGIES: Please see below. REVIEW OF SYSTEMS: 10 point ROS was reviewed the pertinent findings are as stated in HPI. All other elements were negative. HOME MEDICATIONS: Please see below. PHYSICAL EXAMINATION: VITAL SIGNS: HDS, afebrile, breathing comfortably on room air GENERAL APPEARANCE: obese, NAD HEENT: NCAT, EOMI, PERRLA, MMM CARDIOVASCULAR: RRR, no m/r/g LUNGS: clear to auscultation, mild blunting at the posterior bases ABDOMEN: normoactive sounds, soft, tender to deep palpation on L side EXTREMITIES: no LE edema, WWP NEUROLOGICAL: CN2-12 intact, moving all extremities PSYCHIATRIC: AOx3 LABORATORY DATA and IMAGING: as noted above. See below for full details MICROBIOLOGY: Please see below. 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 Continue home pain meds -onc f/u as an outpatient -No pain complaints at this time, will continue home meds per accurate medrec Failure to thrive with poor PO, nausea, diarrhea and weakness i/s/o malignancy: -continue patient's dronabinol once med rec is complete -zofran 4mg Q6HP IV for severe persistent nausea, otherwise continue home 4mg PO TID -PT/OT -nutrition consult PMR: -continue prednisone 10mg daily, with omeprazole 20mg daily DVT ppx: lovenox Vital Signs Vital Signs Date Time Temp Pulse Resp B/P (MAP) Pulse Ox O2 Delivery O2 Flow Rate FiO2 08/25/20 15:05 08/25/20 12:54 97.8 91 18 96 Room Air Laboratory Data Labs 24H Laboratory Tests 2 08/25/20 15:02: Immature Granulocyte % (Auto) 1.0, Neutrophils (%) (Auto) 84.4H, Lymphocytes (%) (Auto) 10.7L, Monocytes (%) (Auto) 3.6, Eosinophils (%) (Auto) 0.2, Basophils (%) (Auto) 0.1, Neutrophils # (Auto) 8.7H, Lymphocytes # (Auto) 1.1L, Monocytes # (Auto) 0.4, Eosinophils # (Auto) 0.0, Basophils # (Auto) 0.0, Nucleated Red Blood Cells % (auto) 0.0, Anion Gap 6L, Glomerular Filtration Rate > 60.0, Calcium Level 8.4L, Magnesium Level 1.4L, Total Bilirubin 0.3, Direct Bilirubin < 0.1, Aspartate Amino Transf (AST/SGOT) 9, Alanine Aminotransferase (ALT/SGPT) 11L, Alkaline Phosphatase 69, Total Creatine Kinase 11L, Creatine Kinase MB < 1.0, Creatine Kinase MB Relative Index 9.09H, Troponin I 0.02, VN-Mtf-D-Type Natriuretic Peptide 1293H, Total Protein 5.1L, Albumin 2.3L, Albumin/Globulin Ratio 0.8L, Thyroid Stimulating Hormone (TSH) 1.190, Thyroxine (T4) 6.6 CBC/BMP Laboratory Tests 08/25/20 15:02 Home Medications Scheduled Acetaminophen (Acetaminophen ER) 650 Mg Tablet.er, 1 TAB PO TID Dronabinol (Dronabinol) 5 Mg Capsule, 5 MG PO PRN Gabapentin (Neurontin) 100 Mg Capsule, 1 CAP PO TID Lactulose (Lactulose) 10 Gm/15 Ml Solution, 30 ML PO BID for constipation Lidocaine/Prilocaine (Lidocaine-Prilocaine Cream) 2.5%/2.5% Cream..g., 1 ASD IRECTED TOP ASDIRECTED Apply dime size to port area. Do not rub in, cover with saran wrap to protect clothing. Omeprazole Magnesium (Prilosec Otc) 20 Mg Tablet.dr, 20 MG PO DAILY Ondansetron HCl (Ondansetron HCl) 8 Mg Tablet, 1 TAB PO TID for nausea/vomiting Potassium Chloride (Potassium Chloride) 8 Meq Tablet.er, 1 TAB PO twice dailywth food take with food Prednisone (Prednisone) 10 Mg Tab.ds.pk, 1 TAB PO DAILY Prochlorperazine Maleate (Prochlorperazine Maleate) 10 Mg Tablet, 1 TAB PO Q4HP for Nausea Take in between scheduled zofran doses Scheduled PRN Hydrocodone/Acetaminophen (Hydrocodone-Acetamin 5-325 mg) 1 Each Tablet, 1 TAB PO Q6H PRN for PAIN MDD 4 Miscellaneous Medications Alendronate Sodium (Alendronate Sodium) 70 Mg/75 Ml Solution, 70 MG PO Allergies Coded Allergies: Sulfa (Sulfonamide Antibiotics) (Verified Allergy, Unknown, 04/20/20) A-FIB/CHADSVASC A-FIB History Current/History of A-Fib/PAF?: No Current PO Anticoag Therapy: No Age/Risk Factor Scoring CHADSVASC: CHADSVASC Response (Comments) Value Age Risk Factor Age >/= 75 years old 2 Gender Risk Factor Female 1 Hx of CHF No 0 Hx of HTN No 0 Hx of Stroke/TIA/or VTE No 0 Hx of Diabetes No 0 Hx of Vascular Disease No 0 Total 3 Treatment Treatment ordered: NONE Reason Anticoagulant not given: Not indicated/[id number] LAXMI HOGAN MD Aug 25, 2020 17:00
[2020-08-25] MEDS ORDERED: ZOFR4TAB16 PO (18:05)
[2020-08-25] MEDS ORDERED: PRED5TA PO (18:05)
[2020-08-25] MEDS ORDERED: OMEP1CAP73 PO (18:05)
--- NOTE | 2020-08-25 19:12 | REPVR ---
PROCEDURE INFORMATION: Exam: CT Abdomen And Pelvis Without Contrast Exam date and time: 08/25/2020 6:45 PM Age: 75 years old Clinical indication: Nausea and vomiting; Additional info: Known rp malignancy S/P xrt with n/v/d TECHNIQUE: Imaging protocol: Computed tomography of the abdomen and pelvis without contrast. Radiation optimization: All CT scans at this facility use at least one of these dose optimization techniques: automated exposure control; mA and/or kV adjustment per patient size (includes targeted exams where dose is matched to clinical indication); or iterative reconstruction. COMPARISON: CT ABD/PELVIS W/O CONTRAST - OUTSIDE PRIOR 06/21/2020 4:13 PM FINDINGS: Pleural spaces: Small bilateral pleural effusions with compressive atelectasis, left greater than right. Liver: Normal. No mass. Gallbladder and bile ducts: There are gallstones present. No evidence of cholecystitis demonstrated. Pancreas: There is diffuse pancreatic atrophy. Spleen: Normal. No splenomegaly. Adrenal glands: Normal. No mass. Kidneys and ureters: See "Retroperitoneal space" finding. Stomach and bowel: Unremarkable. No obstruction. No mucosal thickening. Appendix: No evidence of appendicitis. Intraperitoneal space: Unremarkable. No free air. No significant fluid collection. Retroperitoneal space: There has been significant interval enlargement of a previously demonstrated retroperitoneal mass now measuring 15 x 11 x 14 cm. The mass extends anterior and posterior to the abdominal aorta and right para-aortic region, indicating progression in comparison to the prior study. Mass encases the abdominal aorta, left renal artery and vein and obliterates the anterior margin of the left psoas muscle. The mass also laterally displaces the left kidney and obliterates the margin of the medial renal parenchyma on the left suggesting possible invasion. Vasculature: See "Retroperitoneal space" finding. Lymph nodes: Unremarkable. No enlarged lymph nodes. Urinary bladder: Unremarkable as visualized. Reproductive: The cervix is prominent as previously demonstrated although less pronounced than on the 202 examination. Bones/joints: Moderate central spinal stenosis L3-L4. Bilateral spondylolysis L5 with a grade 2 anterolisthesis of L5 on S1. Sclerotic focus demonstrated in the right iliac bone measures 1.4 cm, increased in size in comparison to the 2021 exams. Soft tissues: Unremarkable. Other findings: Osteoporosis. IMPRESSION: 1. There are gallstones present. No evidence of cholecystitis demonstrated. 2. There is diffuse pancreatic atrophy. 3. Progressive interval enlargement of a previously demonstrated left-sided retroperitoneal mass as described above. 4. The cervix is prominent as previously demonstrated although less pronounced than on the 2020 examination. COMMENTS: Consistent with the [employer]'s Incidental Findings Committee white paper (J Am Ainsley Radiol 2018): Any incidental renal lesion less than 1 cm or classified as too small to characterize, or any incidental cystic renal lesion characterized as simple-appearing, is likely benign. No follow-up imaging is recommended for these lesions per consensus recommendations based on imaging criteria. Electronically signed by: Evaristo Ko On 08/25/2020 19:11:50 PM
[2020-08-25 20:20] VITALS: BP 126/89
[2020-08-25] MEDS: ONDANSETRON 4 MG TAB PO SCH (22:27)
[2020-08-25] MEDS: GABAPENTIN 100 MG CAP PO SCH (22:27)
--- NOTE | 2020-08-25 23:06 | ECGEPIP ---
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
[2020-08-26 03:56] VITALS: BP 126/84
[2020-08-26] MEDS: hydrOXYzine 25 MG TAB PO PRN (04:02)
[2020-08-26 06:00] VITALS: BP 128/84
[2020-08-26 06:51] LABS: HEMATOCRIT 25.8 % (36.0-47.0); HEMOGLOBIN 7.9 g/dl (12.0-15.5); MEAN CORPUSCULAR HEMOGLOBIN 27.2 pg (27.0-33.0); MEAN CORPUSCULAR HGB CONC 30.6 g/dl (32.0-36.5); PLATELET COUNT, AUTOMATED 176 10^3/uL (150-450); WHITE BLOOD COUNT 8.1 10^3/uL (4.0-10.0)
[2020-08-26 07:19] LABS: BLOOD UREA NITROGEN 9 MG/DL (7-18); CALCIUM LEVEL 7.8 MG/DL (8.8-10.2); CARBON DIOXIDE LEVEL 30 MEQ/L (21-32); CHLORIDE LEVEL 105 MEQ/L (98-107); CREATININE FOR GFR 0.57 MG/DL (0.55-1.30); GLOMERULAR FILTRATION RATE > 60.0 (>39); GLUCOSE, FASTING 90 MG/DL (70-100); MAGNESIUM LEVEL 1.7 MG/DL (1.8-2.4); POTASSIUM SERUM 3.4 MEQ/L (3.5-5.1); SODIUM LEVEL 141 MEQ/L (136-145)
[2020-08-26] MEDS ORDERED: MAG SULF 1GM/100ML (MAG RUN) 1 GM in IV 1 EA IV ONE (08:30)
[2020-08-26] MEDS ORDERED: POTASSIUM CHLORIDE 10 MEQ SR TABLET PO ONE (08:30)
[2020-08-26 09:00] VITALS: BP 122/66
[2020-08-26] MEDS: OMEPRAZOLE 20 MG CAP PO SCH (09:22)
[2020-08-26] MEDS: ENOXAPARIN 40MG/0.4ML SYRINGE (J1650 PER 10MG) SC SCH (10:15)
[2020-08-26] MEDS: ONDANSETRON 4 MG TAB PO SCH ×3 (10:16→21:41)
[2020-08-26] MEDS: predniSONE 10 MG TAB PO SCH (10:16)
[2020-08-26] MEDS: GABAPENTIN 100 MG CAP PO SCH ×3 (10:30→21:00)
--- NOTE | 2020-08-26 13:39 | IPNPDOC ---
Text Note Date of Service The patient was seen on 08/26/20. NOTE SUBJECTIVE: -No acute events. Was given hydroxyzine for anxiety overnight OBJECTIVE: VITAL SIGNS: HDS, afebrile, breathing comfortably on room air GENERAL APPEARANCE: obese, NAD HEENT: NCAT, EOMI, PERRLA, MMM CARDIOVASCULAR: RRR, no m/r/g LUNGS: clear to auscultation, mild blunting at the posterior bases ABDOMEN: normoactive sounds, soft, tender to deep palpation on L side EXTREMITIES: no LE edema, WWP NEUROLOGICAL: CN2-12 intact, moving all extremities PSYCHIATRIC: AOx3 LABORATORY DATA: Mag 1.7 K 3.4 na 141 Cr 0.57 Hgb 7.9 WBC [address] A/P: Liver: Normal. No mass. Gallbladder and bile ducts: There are gallstones present. No evidence of cholecystitis demonstrated. Pancreas: There is diffuse pancreatic atrophy. Spleen: Normal. No splenomegaly. Adrenal glands: Normal. No mass. Kidneys and ureters: See "Retroperitoneal space" finding. Stomach and bowel: Unremarkable. No obstruction. No mucosal thickening. Appendix: No evidence of appendicitis. Intraperitoneal space: Unremarkable. No free air. No significant fluid collection. Retroperitoneal space: There has been significant interval enlargement of a previously demonstrated retroperitoneal mass now measuring 15 x 11 x 14 cm. The mass extends anterior and posterior to the abdominal aorta and right para-aortic region, indicating progression in comparison to the prior study. Mass encases the abdominal aorta, left renal artery and vein and obliterates the anterior margin of the left psoas muscle. The mass also laterally displaces the left kidney and obliterates the margin of the medial renal parenchyma on the left suggesting possible invasion. Vasculature: See "Retroperitoneal space" finding. Lymph nodes: Unremarkable. No enlarged lymph nodes. Urinary bladder: Unremarkable as visualized. Reproductive: The cervix is prominent as previously demonstrated although less pronounced than on the 2021 examination. Bones/joints: Moderate central spinal stenosis L3-L4. Bilateral spondylolysis L5 with a grade 2 anterolisthesis of L5 on S1. Sclerotic focus demonstrated in the right iliac bone measures 1.4 cm, increased in size in comparison to the 2021 exams. Soft tissues: Unremarkable. Other findings: Osteoporosis. IMPRESSION: 1. There are gallstones present. No evidence of cholecystitis demonstrated. 2. There is diffuse pancreatic atrophy. 3. Progressive interval enlargement of a previously demonstrated left-sided retroperitoneal mass as described above. 4. The cervix is prominent as previously demonstrated although less pronounced than on the 2020 examination. MICROBIOLOGY: Please see below. 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 Continue home pain meds -onc f/u as an outpatient -No pain complaints at this time, will continue home meds per accurate medrec Failure to thrive with poor PO, nausea, diarrhea and weakness i/s/o malignancy: -continue patient's dronabinol -zofran 4mg Q6HP IV for severe persistent nausea, otherwise continuing home 4mg PO TID -PT/OT -nutrition consult PMR: -continue prednisone 10mg daily, with omeprazole 20mg daily DVT ppx: lovenox VS,Fishbone, I+O VS, Fishbone, I+O Laboratory Tests 08/25/20 15:02 08/26/20 06:00 Vital Signs Date Time Temp Pulse Resp B/P (MAP) Pulse Ox O2 Delivery O2 Flow Rate FiO2 08/26/20 06:00 98.0 85 18 128/84 (99) 95 Room Air I&O- Last 24 Hours up to 6 AM 08/26/20 06:00 Intake Total 813 ml Output Total 0 ml Balance 813 ml LAXMI HOGAN MD Aug 26, 2020 08:35
[2020-08-26 14:00] VITALS: BP 136/68
[2020-08-26 19:35] VITALS: BP 126/86
[2020-08-27] MEDS: SODIUM CHLORIDE 0.9% INJ 10 ML SYR IV PRN ×2 (06:08→15:49)
[2020-08-27 06:17] LABS: HEMATOCRIT 25.6 % (36.0-47.0); HEMOGLOBIN 7.7 g/dl (12.0-15.5); MEAN CORPUSCULAR HEMOGLOBIN 26.9 pg (27.0-33.0); MEAN CORPUSCULAR HGB CONC 30.1 g/dl (32.0-36.5); MEAN CORPUSCULAR VOLUME 89.5 fl (80.0-96.0); PLATELET COUNT, AUTOMATED 180 10^3/uL (150-450); RED BLOOD COUNT 2.86 10^6/uL (4.00-5.40); WHITE BLOOD COUNT 8.4 10^3/uL (4.0-10.0)
[2020-08-27 06:45] LABS: BLOOD UREA NITROGEN 11 MG/DL (7-18); CALCIUM LEVEL 7.9 MG/DL (8.8-10.2); CARBON DIOXIDE LEVEL 30 MEQ/L (21-32); CHLORIDE LEVEL 107 MEQ/L (98-107); CREATININE FOR GFR 0.59 MG/DL (0.55-1.30); GLOMERULAR FILTRATION RATE > 60.0 (>39); GLUCOSE, FASTING 84 MG/DL (70-100); POTASSIUM SERUM 3.8 MEQ/L (3.5-5.1); SODIUM LEVEL 142 MEQ/L (136-145)
[2020-08-27] MEDS: hydrOXYzine 25 MG TAB PO PRN (06:48)
[2020-08-27] MEDS: OMEPRAZOLE 20 MG CAP PO SCH (07:51)
[2020-08-27] MEDS: predniSONE 10 MG TAB PO SCH (07:51)
[2020-08-27] MEDS: GABAPENTIN 100 MG CAP PO SCH (07:51)
[2020-08-27] MEDS: ENOXAPARIN 40MG/0.4ML SYRINGE (J1650 PER 10MG) SC SCH (07:51)
[2020-08-27] MEDS: ONDANSETRON 4 MG TAB PO SCH (07:51)
--- NOTE | 2020-08-27 12:05 | DS.PDOC ---
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 She presented to the ED for weakness, persistent episodic diarrhea, nausea and a fast heartbeat. HOSPITAL COURSE: In the ED she was found to have electrolyte derangements with a mag of 1.4, K 3.3, na 138 while Cr was 0.65, WBC 10.3, Hgb 8.4, platelets 195, UA was bland, LFTS were wnl, proBNP was 1293 and CXR showed a small L pleural effusion. She was being admitted for evaluation and management of reported chronic diarrhea, at the time thought likely 2/2 recent radiation, repletion of electrolytes and hydration. She otherwise denied any recent fever, chills, bloody stool, bloody emesis, travel, sick contacts, chest pain and reported that since her radiation her abdominal and back pain had improved. While inpatient she had a nutrition consult for which she was recommended ensure supplements with meals as well as nutritionally dense massed potatoes during her hospital stay. She also worked with PT/OT and was deemed safe for home discharge with home PT. We repleted her electrolytes. Suprisingly she had no diarrhea while inpatient and had one formed BM. She is anemic at baseline and her Hgb slightly dropped to 7.7 and was therefore transfused 1 unit given her weakness as well. She is now being d ischarged home with family with home PT and encouraged to have ensure with meals. She will follow up with PCP within a week for electrolyte check and oncology as per outpatient schedule. DISCHARGE MEDICATIONS: Please see below. ALLERGIES: Please see below. PHYSICAL EXAMINATION ON DISCHARGE: VITAL SIGNS: Please see below. VITAL SIGNS: HDS, afebrile, breathing comfortably on room air GENERAL APPEARANCE: obese, NAD HEENT: NCAT, EOMI, PERRLA, MMM CARDIOVASCULAR: RRR, no m/r/g LUNGS: clear to auscultation, diminished at the bases ABDOMEN: normoactive sounds, soft, tender to deep palpation on L side EXTREMITIES: no LE edema, WWP NEUROLOGICAL: CN2-12 intact, moving all extremities PSYCHIATRIC: AOx3 LABORATORY DATA: please see below IMAGING: CXR: There is a right-sided internal jugular vein [id number] catheter with its tip in the expected location of the superior vena cava. EKG monitoring electrodes overlie the chest. There is blunting of the left lateral and posterior pleural angle indicating a small left pleural effusion. The heart is enlarged. Pulmonary vasculature is not increased. There is an oblique linear density overlying the right mid lung zone which is likely artifactual. There are degenerative disc changes in the thoracic spine and osteoarthritic changes are seen in the shoulders. IMPRESSION: Small left pleural effusion. Right-sided [id number]-[id number] catheter. Cardiomegaly.. CT A/P: Liver: Normal. No mass. Gallbladder and bile ducts: There are gallstones present. No evidence of cholecystitis demonstrated. Pancreas: There is diffuse pancreatic atrophy. Spleen: Normal. No splenomegaly. Adrenal glands: Normal. No mass. Kidneys and ureters: See "Retroperitoneal space" finding. Stomach and bowel: Unremarkable. No obstruction. No mucosal thickening. Appendix: No evidence of appendicitis. Intraperitoneal space: Unremarkable. No free air. No significant fluid collection. Retroperitoneal space: There has been significant interval enlargement of a previously demonstrated retroperitoneal mass now measuring 15 x 11 x 14 cm. The mass extends anterior and posterior to the abdominal aorta and right para-aortic region, indicating progression in comparison to the prior study. Mass encases the abdominal aorta, left renal artery and vein and obliterates the anterior margin of the left psoas muscle. The mass also laterally displaces the left kidney and obliterates the margin of the medial renal parenchyma on the left suggesting possible invasion. Vasculature: See "Retroperitoneal space" finding. Lymph nodes: Unremarkable. No enlarged lymph nodes. Urinary bladder: Unremarkable as visualized. Reproductive: The cervix is prominent as previously demonstrated although less pronounced than on the 2020 examination. Bones/joints: Moderate central spinal stenosis L3-L4. Bilateral spondylolysis L5 with a grade 2 anterolisthesis of L5 on S1. Sclerotic focus demonstrated in the right iliac bone measures 1.4 cm, increased in size in comparison to the 2020 exams. Soft tissues: Unremarkable. Other findings: Osteoporosis. IMPRESSION: 1. There are gallstones present. No evidence of cholecystitis demonstrated. 2. There is diffuse pancreatic atrophy. 3. Progressive interval enlargement of a previously demonstrated left-sided retroperitoneal mass as described above. 4. The cervix is prominent as previously demonstrated although less pronounced than on the 2020 examination. PROGNOSIS: Good ACTIVITY: As tolerated DIET: Regular DISCHARGE PLAN: Home with home PT and ensure with meals DISPOSITION: Home DISCHARGE INSTRUCTIONS: Home with home PT and ensure with meals ITEMS TO FOLLOWUP ON ON OUTPATIENT: Poor nutrition Electrolytes check Oncology follow up Anemia DISCHARGE CONDITION: Stable TIME SPENT ON DISCHARGE: 45 minutes. Vital Signs/I&Os Vital Signs Date Time Temp Pulse Resp B/P (MAP) Pulse Ox O2 Delivery O2 Flow Rate FiO2 08/26/20 19:35 96.0 106 20 126/86 (99) 97 Room Air I&O- Last 24 Hours up to 6 AM 08/27/20 06:00 Intake Total 300 ml Output Total 0 ml Balance 300 ml Laboratory Data Labs 24H Laboratory Tests 2 08/27/20 06:05: Nucleated Red Blood Cells % (auto) 0.0, Anion Gap 5L, Glomerular Filtration Rate > 60.0, Calcium Level 7.9L, Magnesium Level 2.0 CBC/BMP Laboratory Tests 08/27/20 06:05 Discharge Medications Scheduled Omeprazole (Omeprazole) 20 Mg Capsule.dr, 20 MG PO DAILY, (Reported) Ondansetron HCl (Zofran) 4 Mg Tablet, 8 MG PO Q8H, (Reported) Prednisone (Prednisone) 5 Mg Tablet, 10 MG PO DAILY, (Reported) Allergies Coded Allergies: Sulfa (Sulfonamide Antibiotics) (Verified Allergy, Unknown, 04/20/20) LAXMI HOGAN MD Aug 27, 2020 08:12
[2020-08-27 12:19] VITALS: BP 125/87
[2020-08-27 12:34] VITALS: BP 125/85
[2020-08-27 13:34] VITALS: BP 112/65
[2020-08-27 14:36] VITALS: BP 136/64
[2020-08-27 14:50] VITALS: BP 128/75
== END 2020-08-27 16:40 | disposition home health service (06) | DRG 392 ==
LOC: M ED 12:53 → M ED INP 17:33 → ENRESERV 18:31 → M MS5PR 20:20
PROVIDERS: ADMIT Internal Medicine; ATTEND Internal Medicine
DX: K52.9 Noninfective gastroenteritis and colitis, unspecified (principal); C48.0 Malignant neoplasm of retroperitoneum; R62.7 Adult failure to thrive; R53.1 Weakness; I10 Essential (primary) hypertension; E66.01 Morbid (severe) obesity due to excess calories; M35.3 Polymyalgia rheumatica; E83.42 Hypomagnesemia; E87.6 Hypokalemia; Z68.39 Body mass index [BMI] 39.0-39.9, adult; M19.90 Unspecified osteoarthritis, unspecified site; E11.9 Type 2 diabetes mellitus without complications; Z92.3 Personal history of irradiation; Z88.2 Allergy status to sulfonamides; Z79.899 Other long term (current) drug therapy

== ENCOUNTER → 2020-08-30 | Outpatient (CLI) | payer MEDICARE ==
[~2020-08-30] MED LIST changes: +OMEP1CAP73 PO; +PRED5TA PO
--- NOTE | 2020-08-30 11:40 | ECGEPIP ---
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 QS pattern III and aVF; rule out prior IWMI. Nonspecific diffuse T wave abnormalities. Different precordial lead placement but otherwise not significant change from 0 08/25/20 Electronically Signed on 08-30-2020 11:39:51 EDT by Freeman Ramey
== END ==
LOC: M EKG 10:24
PROVIDERS: ATTEND Internal Medicine Hematology & Oncology
DX: C48.0 Malignant neoplasm of retroperitoneum (principal)

== ENCOUNTER 2020-10-18 10:05 | Inpatient (IN) | payer MEDICARE ==
[~2020-10-18] VITALS: Ht 144.8 cm; Wt 81.4 kg
[2020-10-18] MEDS: SODIUM CHLORIDE 0.9% INJ 10 ML SYR IV SCH (09:00)
[~2020-10-18 10:05] MED LIST changes: +ALPR0.25 PO; +DEXA4TA PO; +LIDO1CRE42 TOP; -LIDO2.5C15 TOP; +METO1TAB32 PO; +POTA8CAP10 PO; +PROB250C PO
[2020-10-18] MEDS ORDERED: OXYC1TAB23 PO (10:42)
[2020-10-18] MEDS ORDERED: NS 1,000 ML IV ONE (10:55)
[2020-10-18] MEDS ORDERED: PIPERACILLIN/TAZOBACTAM SOD 4.5 GM in D5W MINI-BAG PLUS 50 ML IV ONE (10:55)
--- NOTE | 2020-10-18 11:25 | REP ---
INDICATION: ruq pain. COMPARISON: 08/25/2020. TECHNIQUE: Single portable AP view of the chest was performed. FINDINGS: Small left effusion and adjacent left base parenchymal opacity appears unchanged compared to the prior study. There is poor ventilation with mild bibasilar atelectatic change. Heart and mediastinum are unchanged. Right central venous catheter is unchanged with the tip in the superior vena cava. IMPRESSION: Stable exam as discussed above. No significant change in small left pleural effusion and adjacent left base parenchymal opacity. <Electronically signed by Ramon Dennison > 10/18/20 112
--- NOTE | 2020-10-18 11:44 | REP ---
INDICATION: Right Upper Quad PAin. COMPARISON: 04/20/2020 FINDINGS: Multiple ultrasonographic images of the liver show the hepatic parenchymal echo texture to appear unremarkable. There are no focal masses. There is no intrahepatic ductal dilatation. The common bile duct measures between 3 mm in its greatest transverse dimension. Multiple ultrasonographic images of the gallbladder show multiple echogenic foci within the gallbladder lumen which casts acoustic shadows. There is no gallbladder wall thickening or pericholecystic edema. Images of the pancreatic region show no gross abnormality. The imaged portion of the right kidney is unremarkable. IMPRESSION: Known cholelithiasis status quo. Accredited by the [employer] in General Ultrasound. <Electronically signed by Te Thornton > 10/18/20 [id number]
[2020-10-18 12:02] LABS: INR 1.04; PROTHROMBIN TIME 13.8 SECONDS (12.5-14.3)
[2020-10-18 12:03] LABS: PARTIAL THROMBOPLASTIN TIME 29.9 SECONDS (24.2-38.5)
[2020-10-18] MEDS ORDERED: ISOVUE-370 76% 100ML VIAL As Ordered ONE (12:09)
[2020-10-18 12:15] LABS: CK-MB VALUE MASS < 1.0 NG/ML (<3.6); CPK CREATINE PHOSPHOKINASE 14 U/L (26-192); LIPASE 29 U/L (73-393); MB/CK RELATIVE INDEX 7.14 (< OR =4); TROPONIN I < 0.02 NG/ML (< 0.10)
[2020-10-18] MEDS ORDERED: MORPHINE 4 MG/ML 1ML VIAL/SYRINGE (J2270) IV PRN ×2 (12:15→14:35)
--- NOTE | 2020-10-18 13:03 | REP ---
INDICATION: ruq pain. Patient gives a history of unknown malignancy. COMPARISON: Comparison CT study of the chest is from July 09, 2020.. TECHNIQUE: Contrast dose: 100 ML of Isovue [address] technique: Helical scanning is acquired and overlapping 1.5 mm and contiguous 3 mm axial images are reformatted. In addition, maximum intensity projection and multiplanar re-formation images are generated in sagittal and coronal imaging projections. FINDINGS: There is good opacification in the pulmonary arterial tree. There is no evidence of vessel cut off or filling defect to suggest pulmonary embolus. Homogeneous opacity is seen in the thoracic aorta. There is no evidence of aneurysm or dissection. There is a small left pleural effusion and a tiny right pleural effusion. There are cyst dependent subsegmental atelectatic changes in the lower lobes bilaterally. Four-chamber cardiomegaly is observed. No mediastinal adenopathy is seen. There is a prominent right hilar lymph node, 1.2 cm in diameter which appears to be new. Lung window settings demonstrate 2 pulmonary nodules suggestive of lung metastases in the left upper lobe. The largest of these measures 1.5 cm and the smaller 0.8 cm in diameter. These have enlarged since the prior scan. There is an old granulomatous calcification in the right lung. right-sided [id number] catheter is seen. there is some focal cortical thinning in the medial clavicle on the left suggesting a skeletal metastatic lesion in this location. no other bony destructive lesion is appreciated. In the upper abdomen, there are low-density lesions in the liver consistent with hepatic metastases. A huge retroperitoneal mass is observed which will be described in more detail on CT abdomen and pelvis study. IMPRESSION: No CT evidence of pulmonary embolus. Metastatic disease of the left lung parenchyma and probably the left medial clavicle. There is a slightly prominent lymph node in the right hilus as well. Small amounts of bilateral pleural fluid are seen. <Electronically signed by Mason Davalos > 10/18/20 [id number]
--- NOTE | 2020-10-18 13:13 | REP ---
INDICATION: ruq pqin. COMPARISON: Comparison CT study is reviewed from a August 25, 2020 and June 21, 2020.. TECHNIQUE: Helical scanning was acquired and 4 mm axial images are re-formatted. Coronal and sagittal MPR images were generated and reviewed. The contrast enhancement dose is 100 mL of intravenous Isovue 370. FINDINGS: Preliminary digital cardiographer radiograph is unremarkable. There are multiple hepatic metastatic lesions which are new findings. These range in size up to 4.8 cm. They are distributed in the left and right lobe of the liver. There is a new low-density lesion in the medial aspect of the spleen 1.9 cm in diameter which may rep vito DIS splenic metastasis. Right adrenal gland remains normal. An opaque gallstone is seen in the gallbladder lumen. No renal mass is observed. The left kidney remains displaced laterally and somewhat anteriorly by a very large retroperitoneal confluent heterogeneous mass. At the level of the displaced left mid kidney where the mass was measured as 11.00 x 9.4 cm on June 21, 2020, the mass is now seen to measure 11.7 cm anteroposterior by 12.2 cm medial to lateral. Maximum craniocaudal extent of the retroperitoneal lesion now measures 16.0 cm, 11.6 cm on June 21, 2020. Most recently in August 25, 2020, these measurements were 12.9 x 13.1 x 13.6 cm. Today's contrast enhanced study shows that the neoplasm envelops the abdominal aorta from the retrocrural level to the infrarenal level. The renal arteries, the proximal SMA, and the proximal celiac axis appear to be at least partially envelop to as well. The mass involves the left iliopsoas muscle. No pelvic mass or adenopathy is appreciated. Urinary bladder is intact. The no uterine or ovarian abnormality is seen. Small and large bowel loops are unremarkable. On bone window settings, there are pars interarticularis defects at L5 and S1 magnum mild grade 1 L5-S1 spondylolisthesis is seen. There is a sclerotic area in the right iliac bone which has enlarged since the May 2020 study suggesting a sclerotic metastatic lesion. No definite lytic lesion is seen in the abdomen or pelvis. IMPRESSION: Evidence of progression with new metastatic disease to the liver. Probable metastatic focus in the spleen. Sclerotic lesion in the right iliac bone has enlarged and may be metastatic as well. The retroperitoneal mass appears increased in craniocaudal extent compared to the recent prior study. <Electronically signed by Mason Davalos > 10/18/20 [id number]
[2020-10-18] MEDS ORDERED: ONDA8TAB10 PO (13:50)
[2020-10-18 14:08] LABS: RSV AMPLIFICATION NEGATIVE (NEGATIVE)
[2020-10-18 15:35] VITALS: BP 156/85
--- NOTE | 2020-10-18 15:41 | ECGEPIP ---
[facility] - ED Test Date: 2020-10-18 Pat Name: ERIKA MAYA Department: Room: - Gender: Female Pulmonology Physician: HC : [id number] Requested By: Lidia Humphreys Order Number: [id number] Reading MD: Manolo Pace Measurements Intervals [place] Rate: 98 P: FL: 146 QRS: -27 QRSD: 72 T: -8 QT: 342 QTc: 436 Interpretive Statements Normal sinus rhythm Inferior infarct , age undetermined Anterolateral infarct , age undetermined Nonspecific T wave abnormality Similar to tracing done 08-30-20 Electronically Signed on 10-18-2020 15:41:38 EDT by Manolo Pace
[2020-10-18] MEDS ORDERED: ONDANSETRON 4MG/2ML VIAL IV PRN (16:00)
[2020-10-18] MEDS ORDERED: NS 1,000 ML IV SCH (16:20)
[2020-10-18] MEDS ORDERED: SODIUM CHLORIDE 0.9% INJ 10 ML SYR IV PRN (16:25)
--- NOTE | 2020-10-18 16:28 | HPEPDOC ---
General Date of Admission Oct 18, 2020 at 14:33 Date of Service: Oct 18, 2020 Chief Complaint The patient is a 75-year-old female admitted with a reason for visit of Abd Pain,Leukocytosis (Leucocytosis). Source: Patient, RN/MD History of Present Illness 75 year old with left flank retroperitoneal metastatic carcinosarcoma was sent from oncology office for Right upper quadrant pain. Patient was supposed to start second cycle of chemotherapy today. Serevent to the oncology office for evaluation. There she complained before of severe right upper quadrant, sharp, constant pain 10 x 10 in intensity, which started yesterday associated with n ausea. Labs in the oncology office showed a white count of 29,000. She has a history of gallstones. Circumflex was felt she may be having an acute cholecystitis or biliary colic, so was sent to the emergency room for evaluation. In the ED, CT abdomen and pelvis are multiple hepatic metastatic lesions which are new findings. These range in size up to 4.8 cm. They are distributed in the left and right lobe of the liver. There is a new low-density lesion in the medial aspect of the spleen 1.9 cm in diameter which may rep vito DIS splenic metastasis. An opaque gallstone is seen in the gallbladder lumen. It also showed sclerotic metastatic lesion in the right iliac bone. The left retroperitoneal mass has increased in size. The mass envelops the abdominal aorta from the retrocrural level to the infrarenal level. The renal arteries, the proximal SMA, and the proximal celiac axis appear to be at least partially envelop to as well. The mass involves the left iliopsoas muscle. She was admitted for right upper quadrant pain that due to hepatitic metastases or biliary colic Home Medications Scheduled Alprazolam (Alprazolam) 0.25 Mg Tablet, 0.25 MG PO TID, (Reported) Metoprolol Succinate (Metoprolol Succinate) 25 Mg Tab.er.24h, 12.5 MG PO DAILY, (Reported) Omeprazole (Omeprazole) 20 Mg Capsule.dr, 20 MG PO DAILY, (Reported) Prednisone (Prednisone) 5 Mg Tablet, 10 MG PO DAILY, (Reported) Scheduled PRN Ondansetron HCl (Ondansetron HCl) 8 Mg Tablet, 8 MG PO Q6H PRN for NAUSEA OR VOMITING, (Reported) Oxycodone HCl/Acetaminophen (Oxycodone-Acetaminophen 5-325) 1 Each Tablet, 1 TAB PO Q6HP PRN for PAIN LEVEL 1-6, (Reported) Allergies Coded Allergies: Sulfa (Sulfonamide Antibiotics) (Verified Allergy, Unknown, 10/18/20) Past Medical History Medical History Left retroperitoneal metastatic mass, 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 Right knee replacement 2006. Family History Mother at the age of 20 years, had Alzheimer's, hypertension ,thyroid disease Father had diabetes and had bilateral leg amputations, CHF One sister had kidney cancer Social History * Smoker: Denies Alcohol: Denies Drugs: denies A-FIB/CHADSVASC A-FIB History Current/History of A-Fib/PAF?: No Review of Systems Constitutional: Reports: Weakness, Fatigue; Denies: Chills, Fever, Night Sweats ENT: Denies: Head Aches, Ear Pain, Dysphagia Skin: Reports: Rash Pulmonary: Denies: Dyspnea, Cough Cardiovascular: Denies: Chest Pain, Palpitations, Orthopnea, Paroxysmal Noc. Dyspnea, Lt Headedness Gastrointestinal: Reports: Nausea, Abdominal Pain, Constipation Hematologic: Denies: Bruising, Bleeding Excessively Physical Examination General Exam: Positive: Alert, Cooperative, No Acute Distress Eye Exam: Positive: PERRLA, Conjunctiva & lids normal, EOMI; Negative: Sclera icteric ENT Exam: Positive: Atraumatic, Mucous membr. moist/pink, Pharynx Normal Chest Exam: Positive: Clear to auscultation, Normal air movement Heart Exam: Positive: Rate Normal, Regular Rhythm, Normal S1, Normal S2; Negative: Murmurs, Rubs Abdomen Exam: Positive: Normal bowel sounds, Soft, Tenderness (right upper quadrant), Other (No guarding or rigidity); Negative: Hepatospenomegaly Extremity Exam: Negative: Clubbing, Cyanosis, Edema Skin Exam: Positive: Rash (under both breasts) Vital Signs Vital Signs Date Time Temp Pulse Resp B/P (MAP) Pulse Ox O2 Delivery O2 Flow Rate FiO2 10/18/20 15:17 96.5 87 20 142/71 (94) 99 Nasal Cannula 2.0 Laboratory Data Labs 24H Laboratory Tests 2 10/18/20 10:53: Prothrombin Time 13.8, Prothromb Time International Ratio 1.04, Activated Partial Thromboplast Time 29.9, Lactic Acid Level 0.8, Total Creatine Kinase 14L, Creatine Kinase MB < 1.0, Creatine Kinase MB Relative Index 7.14H, Troponin I < 0.02, Lipase 29L 10/18/20 13:23: Coronavirus (COVID-19)(PCR) NEGATIVE, Influenza Type A (RT-PCR) NEGATIVE, Influenza Type B (RT-PCR) NEGATIVE, Respiratory Syncytial Virus (PCR) NEGATIVE Microbiology Microbiology 10/18/20 Blood Culture, Received Pending 10/18/20 Blood Culture, Received Pending Assessment/Plan 75 year old with left flank retroperitoneal metastatic carcinosarcoma was sent from oncology office for Right upper quadrant pain. Patient was supposed to start second cycle of chemotherapy today. Serevent to the oncology office for evaluation. There she complained before of severe right upper quadrant, sharp, constant pain 10 x 10 in intensity, which started yesterday associated with nausea. Labs in the oncology office showed a white count of 29,000. She has a history of gallstones. Circumflex was felt she may be having an acute cholecysti tis or biliary colic, so was sent to the emergency room for evaluation. In the ED, CT abdomen and pelvis are multiple hepatic metastatic lesions which are new findings. These range in size up to 4.8 cm. They are distributed in the left and right lobe of the liver. There is a new low-density lesion in the medial aspect of the spleen 1.9 cm in diameter which may rep vito DIS splenic metastasis. An opaque gallstone is seen in the gallbladder lumen. It also showed sclerotic metastatic lesion in the right iliac bone. The left retroperitoneal mass has increased in size. The mass envelops the abdominal aorta from the retrocrural level to the infrarenal level. The renal arteries, the proximal SMA, and the proximal celiac axis appear to be at least partially envelop to as well. The mass involves the left iliopsoas muscle. 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 sup Mesenteric artery and the iliopsoas muscle on the left Metastases to liver and right iliac bone. Also possibly spleen Received palliative RT for the mass in June. But the mass size has increased Now getting chemotherapy Prognosis is poor Chronic anemia Due to malignancy Hypokalemia Replaced GERD will give PPI Polymyalgia rheumatica Continue prednisone Hypertension Continue metoprolol History of diabetes Not on any meds Plan / VTE VTE Prophylaxis Ordered?: Yes ANDREW DOMINGUEZ MD Oct 18, 2020 16:28
[2020-10-18] MEDS: ALPRAZolam 0.25 MG TAB PO SCH ×2 (17:30→20:58)
[2020-10-18] MEDS: PIPERACILLIN/TAZOBACTAM SOD 3.375 GM in D5W MINI-BAG PLUS 50 ML IV SCH (17:30)
[2020-10-18] MEDS: KCL 40MEQ in NS 1000ML 1,000 ML IV SCH (17:30)
[2020-10-18] MEDS ORDERED: PANTOPRAZOLE 40MG VIAL (C9113 PER 1) IV SCH (21:00)
[2020-10-18 22:00] VITALS: BP 154/84
[2020-10-19] MEDS: PIPERACILLIN/TAZOBACTAM SOD 3.375 GM in D5W MINI-BAG PLUS 50 ML IV SCH ×2 (00:37→05:46)
[2020-10-19] MEDS: KCL 40MEQ in NS 1000ML 1,000 ML IV SCH (05:46)
[2020-10-19] MEDS ORDERED: PERCOCET 5MG/325MG TAB PO PRN (05:55)
[2020-10-19 06:00] VITALS: BP 134/89
[2020-10-19 07:38] LABS: BASO # 0.1 10^3/uL (0.0-0.2); BASO % 0.2 % (0.0-1.0); EOS % 0.1 % (0.0-3.0); HEMATOCRIT 27.6 % (36.0-47.0); HEMOGLOBIN 8.7 g/dl (12.0-15.5); LYMPH # 0.8 10^3/uL (1.5-5.0); MEAN CORPUSCULAR HEMOGLOBIN 30.2 pg (27.0-33.0); MEAN CORPUSCULAR HGB CONC 31.5 g/dl (32.0-36.5); MEAN CORPUSCULAR VOLUME 95.8 fl (80.0-96.0); MONO # 1.4 10^3/uL (0.0-0.8); MONO % 4.9 % (2.0-8.0); NEUTROPHILS # 24.5 10^3/uL (1.5-8.5); NEUTROPHILS % 87.6 % (36.0-66.0); PLATELET COUNT, AUTOMATED 187 10^3/uL (150-450); RED BLOOD COUNT 2.88 10^6/uL (4.00-5.40)
[2020-10-19] MEDS ORDERED: MOM 30ML SUSPENSION UDC PO PRN (08:00)
[2020-10-19 08:01] LABS: ALBUMIN 2.1 GM/DL (3.2-5.2); ALT/SGPT 16 U/L (12-78); BILIRUBIN,DIRECT 0.2 MG/DL (0.0-0.2); BILIRUBIN,TOTAL 0.4 MG/DL (0.2-1.0); BLOOD UREA NITROGEN 10 MG/DL (7-18); CALCIUM LEVEL 7.7 MG/DL (8.8-10.2); CARBON DIOXIDE LEVEL 26 MEQ/L (21-32); CHLORIDE LEVEL 107 MEQ/L (98-107); CREATININE FOR GFR 0.56 MG/DL (0.55-1.30); GLOMERULAR FILTRATION RATE > 60.0 (>39); GLUCOSE, FASTING 81 MG/DL (70-100); POTASSIUM SERUM 3.7 MEQ/L (3.5-5.1); SODIUM LEVEL 142 MEQ/L (136-145)
--- NOTE | 2020-10-19 08:55 | IPNPDOC ---
Text Note Date of Service The patient was seen on 10/19/20. NOTE No acute events overnight. Her pain has subsided with the PO pain meds. No co mplaints this am. Denies nausea, emesis, fevers, or pains. VSSAF NAD abd - soft, nt, nd labs - below A) 75y/o female with metastatic peritoneal sarcoma with new mets to liver and spleen. P) reg diet d/c home f/u with oncology ANNA abd pains are secondary to tumor mets, not the gallbladder, and the leukocytosis is likely secondary to the malignancy as well. No need for any surgery. Sinan Early DO VS,Fishbone, I+O VS, Fishbone, I+O Laboratory Tests 10/19/20 06:59 Vital Signs Date Time Temp Pulse Resp B/P (MAP) Pulse Ox O2 Delivery O2 Flow Rate FiO2 10/19/20 07:21 16 10/19/20 06:21 Room Air 10/19/20 06:00 97.8 99 134/89 (104) 96 10/18/20 15:17 2.0 I&O- Last 24 Hours up to 6 AM 10/19/20 05:59 Intake Total 440 ml Balance 440 ml DENNY EARLY DO Oct 19, 2020 08:55
[2020-10-19] MEDS: SODIUM CHLORIDE 0.9% INJ 10 ML SYR IV SCH ×2 (09:00→11:35)
[2020-10-19] MEDS ORDERED: predniSONE 10 MG TAB PO SCH (09:00)
[2020-10-19] MEDS ORDERED: SENOKOT S TAB PO SCH (09:00)
[2020-10-19] MEDS: ALPRAZolam 0.25 MG TAB PO SCH (09:22)
--- NOTE | 2020-10-19 13:04 | DS.PDOC ---
Discharge Summary General Date of Admission Oct 18, 2020 at 14:33 Date of Discharge 10/19/20 Discharge Summary PROCEDURES PERFORMED DURING STAY: [None]. DISCHARGE DIAGNOSES: RUQ pain due to liver metastasis. Leucocytosis due to malignancy. Mets to right iliac bone Rapidly Enlarging retroperitoneal malignant mass now encasing more arteries the SMA, both renal arteries and the proximal celiac axis and aorta, involves the left iliopsoas muscle. 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 Right knee replacement 2006. COMPLICATIONS/CHIEF COMPLAINT: Abd Pain,Leukocytosis (Leucocytosis). HOSPITAL COURSE: 75 year old with left flank retroperitoneal metastatic carcinosarcoma was sent from oncology office for Right upper quadrant pain. Patient was supposed to start second cycle of chemotherapy today. Serevent to the oncology office for evaluation. There she complained before of severe right upper quadrant, sharp, constant pain 10 x 10 in intensity, which started yesterday associated with nausea. Labs in the oncology office showed a white count of 29,000. She has a history of gallstones. Circumflex was felt she may be having an acute cholecystitis or biliary colic, so was sent to the emergency room for evaluation. In the ED, CT abdomen and pelvis are multiple hepatic metastatic lesions which are new findings. These range in size up to 4.8 cm. They are distributed in the left and right lobe of the liver. There is a new low-density lesion in the medial aspect of the spleen 1.9 cm in diameter which may rep vito DIS splenic metastasis. An opaque gallstone is seen in the gallbladder lumen. It also showed sclerotic metastatic lesion in the right iliac bone. The left retroperitoneal mass has increased in size. The mass envelops the abdominal aorta from the retrocrural level to the infrarenal level. The renal arteries, the proximal SMA, and the proximal celiac axis appear to be at least partially envelop to as well. The mass involves the left iliopsoas muscle. She was admitted for right upper quadrant pain that may be due to hepatitic metastases or biliary colic/ GB infection. Right upper quadrant pain, due to hepatitic metastasis No Gall bladder infection or biliary colic as per surgery All samuel pain is due to the liver mets. Pain control with oxycodone appreciate surgical evaluation. Leucocytosis due to malignancy Metastatic undifferentiated carcinosarcoma with a very large retroperitoneal mass encasing aorta, renal arteries. sup Mesenteric artery and the iliopsoas muscle on the left Metastases to liver and right iliac bone. Also possibly spleen Received palliative RT for the mass in June. But the mass size has increased Now getting chemotherapy Prognosis is poor Chronic anemia Due to malignancy Hypokalemia Replaced GERD will give PPI Polymyalgia rheumatica Continue prednisone Hypertension Continue metoprolol History of diabetes Not on any meds DISCHARGE MEDICATIONS: Please see below. ALLERGIES: Please see below. PHYSICAL EXAMINATION ON DISCHARGE: VITAL SIGNS: Please see below. General Exam: Positive: Alert, Cooperative, No Acute Distress Eye Exam: Positive: PERRLA, Conjunctiva & lids normal, EOMI; Negative: Sclera icteric ENT Exam: Positive: Atraumatic, Mucous membr. moist/pink, Pharynx Normal Chest Exam: Positive: Clear to auscultation, Normal air movement Heart Exam: Positive: Rate Normal, Regular Rhythm, Normal S1, Normal S2; Negative: Murmurs, Rubs Abdomen Exam: Positive: Normal bowel sounds, Soft, Tenderness (right upper quadrant), Other (No guarding or rigidity); Negative: Hepatospenomegaly Extremity Exam: Negative: Clubbing, Cyanosis, Edema Skin Exam: Positive: Rash (under both breasts) LABORATORY DATA: Please see below. PROGNOSIS: poor ACTIVITY: [As tolerated]. DIET: regular DISPOSITION: 06 Home Health Service. DISCHARGE INSTRUCTIONS: Follow up with Oncology ANNA Follow up final cultures. DISCHARGE CONDITION: [Stable]. TIME SPENT ON DISCHARGE: 35 minutes. Vital Signs/I&Os Vital Signs Date Time Temp Pulse Resp B/P (MAP) Pulse Ox O2 Delivery O2 Flow Rate FiO2 10/19/20 07:21 16 10/19/20 06:21 Room Air 10/19/20 06:00 97.8 99 134/89 (104) 96 10/18/20 15:17 2.0 I&O- Last 24 Hours up to 6 AM 10/19/20 06:00 Intake Total 440 ml Balance 440 ml Laboratory Data Labs 24H Laboratory Tests 2 10/18/20 13:23: Coronavirus (COVID-19)(PCR) NEGATIVE, Influenza Type A (RT-PCR) NEGATIVE, Influenza Type B (RT-PCR) NEGATIVE, Respiratory Syncytial Virus (PCR) NEGATIVE 10/19/20 06:59: Immature Granulocyte % (Auto) 4.2H, Neutrophils (%) (Auto) 87.6H, Lymphocytes (%) (Auto) 3.0L, Monocytes (%) (Auto) 4.9, Eosinophils (%) (Auto) 0.1, Basophils (%) (Auto) 0.2, Neutrophils # (Auto) 24.5H, Lymphocytes # (Auto) 0.8L, Monocytes # (Auto) 1.4H, Eosinophils # (Auto) 0.0, Basophils # (Auto) 0.1, Nucleated Red Blood Cells % (auto) 0.1H, Anion Gap 9, Glomerular Filtration Rate > 60.0, Calcium Level 7.7L, Total Bilirubin 0.4, Direct Bilirubin 0.2, Aspartate Amino Transf (AST/SGOT) 20, Alanine Aminotransferase (ALT/SGPT) 16, Alkaline Phosphatase 117, Total Protein 5.0#L, Albumin 2.1L, Albumin/Globulin Ratio 0.7L CBC/BMP Laboratory Tests 10/19/20 06:59 Microbiology Microbiology 10/18/20 Blood Culture - Preliminary, Resulted No growth after 24 hours . All specim... 10/18/20 Blood Culture - Preliminary, Resulted No growth after 24 hours . All specim... Discharge Medications Scheduled Alprazolam (Alprazolam) 0.25 Mg Tablet, 0.25 MG PO TID, (Reported) Metoprolol Succinate (Metoprolol Succinate) 25 Mg Tab.er.24h, 12.5 MG PO DAILY, (Reported) Omeprazole (Omeprazole) 20 Mg Capsule.dr, 20 MG PO DAILY, (Reported) Prednisone (Prednisone) 5 Mg Tablet, 10 MG PO DAILY, (Reported) Scheduled PRN Ondansetron HCl (Ondansetron HCl) 8 Mg Tablet, 8 MG PO Q6H PRN for NAUSEA OR VOMITING, (Reported) Oxycodone HCl/Acetaminophen (Oxycodone-Acetaminophen 5-325) 1 Each Tablet, 1 TAB PO Q6HP PRN for PAIN LEVEL 1-6, (Reported) Allergies Coded Allergies: Sulfa (Sulfonamide Antibiotics) (Verified Allergy, Unknown, 10/18/20) ANDREW DOMINGUEZ MD Oct 19, 2020 13:04
--- NOTE | 2020-10-21 15:06 | CR ---
CONSULTATION DATE: 10/18/2020 CHIEF COMPLAINT: Abdominal pain. HISTORY OF PRESENT ILLNESS: Patient is a 75-year-old female with a known history of a retroperitoneal metastatic carcinosarcoma. She was sent over from the oncology office due to severe right upper quadrant pains. She was supposed to have her chemotherapy treatment today, but due to her pain she was brought to the emergency room for evaluation in 02/06 pain. In the emergency room she did have elevated white count of 29,[address] as a CT scan done demonstrating that there is cholelithiasis, but she also has new signs of metastatic lesion in the liver and the spleen, which are new from her previous exams. She denies any nausea or vomiting. No fevers or chills. The pain is not associated with food. It is just a constant right upper quadrant pain. No previous pains like this in the past. MEDICAL HISTORY: 1. Retroperitoneal metastatic mass. 2. Obesity. 3. Hypertension. 4. Diabetes. 5. Polymyalgia rheumatica. 6. Osteoarthritis. 7. Hepatic cysts. SURGICAL HISTORY: Right knee replacement. SOCIAL HISTORY: Negative. ALLERGIES: SULFA. HOME MEDICATIONS: Please see medication reconciliation. REVIEW OF SYSTEMS: Pertinent positives and negatives as stated in history of present illness (HPI). PHYSICAL EXAMINATION: GENERAL: Alert and oriented times three in no acute distress. VITAL SIGNS: Temperature 99.4, pulse 102, respirations 24, blood pressure 129/64, pulse oximetry 96% on room air. HEENT: Pupils equally round and reactive to light and accommodation. HEART: S1, S2, regular rate and rhythm. LUNGS: Clear to auscultation bilaterally. ABDOMEN: Soft, tender to palpation in the right upper quadrant only. No guarding or rigidity. EXTREMITIES: No clubbing, cyanosis, or edema. LABORATORY DATA: White count 29,000. IMAGING: CT abdomen and pelvis shows evidence of progression with new metastatic disease to the liver, probable metastatic focus in the spleen. Sclerotic lesion in the right iliac bone has enlarged and may be metastatic as well. The retroperitoneal mass appears increased in craniocaudal extent compared to recent prior study. ASSESSMENT AND PLAN: Patient is a 75-year-old female with right upper quadrant pains and history of retroperitoneal mass. CT findings now are showing progression of her disease expanding into the liver. This is likely the cause of her severe increase in pain. There are no signs of any cholecystitis on a CT. Her leukocytosis is likely also secondary to a combination of her tumor as well as possibly some of the chemotherapy that she has already received. No recommendation for any type of surgical intervention at this time. Recommend palliative treatment, pain control, and discharge as soon as possible so she can return to her oncologist and get started back on her chemotherapy as quickly as she can.
== END 2020-10-19 11:55 | disposition home health service (06) | DRG 436 ==
LOC: M ED 10:05 → M ED INP 14:33 → ENRESERV 14:48 → M MS5PR 15:35
PROVIDERS: ADMIT Internal Medicine Nephrology; ATTEND Internal Medicine Nephrology
DX: C78.7 Secondary malignant neoplasm of liver and intrahepatic bile duct (principal); C79.51 Secondary malignant neoplasm of bone; C48.0 Malignant neoplasm of retroperitoneum; C78.89 Secondary malignant neoplasm of other digestive organs; M35.3 Polymyalgia rheumatica; E87.6 Hypokalemia; I10 Essential (primary) hypertension; E11.9 Type 2 diabetes mellitus without complications; E66.9 Obesity, unspecified; G89.3 Neoplasm related pain (acute) (chronic); D72.829 Elevated white blood cell count, unspecified; Z92.21 Personal history of antineoplastic chemotherapy; Z96.651 Presence of right artificial knee joint; M19.90 Unspecified osteoarthritis, unspecified site; K21.9 Gastro-esophageal reflux disease without esophagitis; Z79.899 Other long term (current) drug therapy; Z88.2 Allergy status to sulfonamides; Z79.52 Long term (current) use of systemic steroids; K80.20 Calculus of gallbladder without cholecystitis without obstruction

== ENCOUNTER → 2020-11-03 | Outpatient (CLI) | payer MEDICARE ==
[~2020-11-03] MED LIST changes: +OXYC1TAB23 PO
--- NOTE | 2020-11-03 15:26 | RADONC ---
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 She has been unable to receive optimal chemotherapy due to weakness, anemia, and electrolyte abnormalities. She is seen today for consideration of additional RT. Diagnosis/Treatment History Oncologic History Presented to [facility] ED with abdominal pain on 04/20/20 had RUQ US which was negative. Pain persisted and CT abdomen on 05/14/20 revealed a large left flank mass narrowing the left renal artery and encasing the aorta as well as a question of cervical versus uterine lobulated mass. She had biopsy of the flank mass on 06/01/20 which showed carcinoma with sarcomatoid features. She had a colposcopy with Dr. Rosa 06/23/20 which showed a normal cervix. She was referred to Dr. Espinoza for consideration of chemotherapy (carbo/taxol) for this presumed gynecologic malignancy. 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 The evidence so far suggests high grade carcinoma, however further work up is needed to determine the site of origin. The case was sent to [facility] for consultation. Per report, the lesional cells are positive for CK7 and vimentin, and negative for SMA, ER, CK20, PAX-8, desmin and WT-1. Further clinical correlation to rule out sarcomatoid carcinoma and carcinosarcoma or malignant mixed mullerian tumor of the cervix or uterine corpus is recommended. Please see the scanned documentation for the full surgical pathology consultation report ([id number]). 07/22/20-08/05/20 Palliative RT to the left flank mass 30 Gy in 10 fractions. Recent data: 10/18/20 CT chest abdomen pelvis Progression of left flank mass New liver metastases Interval History Here with her supportive . She has ongoing nausea and dry heaves. She also has new RUQ pain intermittent, not post prandial. No association with nausea. Non radiating. She has no left flank pain, which improved s/p RT. Appetite is poor, weight is down. She is taking oxycodone 5 mg q4h as needed. Averages 1-2 pills per day. Current Therapy Chemotherapy pending Stage Uterine carcinosarcoma stage IV Social History: Non-smoker Non-drinker Allergies / Meds Allergies: Coded Allergies: Sulfa (Sulfonamide Antibiotics) (Verified Allergy, Unknown, 10/18/20) Home Meds Reported Medications Ondansetron HCl (Ondansetron HCl) 8 Mg Tablet, 8 MG PO Q6H PRN for NAUSEA OR VOMITING 10/18/20 Oxycodone HCl/Acetaminophen (Oxycodone-Acetaminophen 5-325) 1 Each Tablet, 1 TAB PO Q6HP PRN for PAIN LEVEL 1-6 10/18/20 Metoprolol Succinate (Metoprolol Succinate) 25 Mg Tab.er.24h, 12.5 MG PO DAILY 09/28/20 Alprazolam (Alprazolam) 0.25 Mg Tablet, 0.25 MG PO TID 09/06/20 Prednisone (Prednisone) 5 Mg Tablet, 10 MG PO DAILY 08/25/20 Omeprazole (Omeprazole) 20 Mg Capsule.dr, 20 MG PO DAILY 08/25/20 Review of Systems Review of Systems Constitutional: Reports: Malaise, Fatigue, Weight Loss Eyes: Denies: Pain HEENT: Denies: Head Aches Skin: Denies: Rash Pulmonary: Denies: Dyspnea Cardiovascular: Denies: Chest Pain Gastrointestinal: Reports: Nausea, Vomiting, Abdominal Pain, Constipation Genitourinary: Denies: Dysuria, Frequency Musculoskeletal: Denies: Neck pain, Back pain Neurological: Denies: Weakness, Numbness Physical Examination Vital Signs Wt 177 lbs (from 191 on 08/02/20) T 96.5 P 99 RR 18 BP 109/70 O2 98% Pain 3 Fatigue 3 General Exam: Positive: Alert, Cooperative, No Acute Distress Eye Exam: Positive: PERRLA, EOMI ENT EXAM: Positive: Atraumatic Neck Exam: Positive: Supple Abdomen Exam: Positive: Tenderness (RUQ tender to deep palpation. No rebound. No organomegaly. Normal bowel sounds, no palpable mass. No CVA tenderness. ) Extremity Exam: Positive: Edema Skin Exam: Positive: Other skin issue (2x gluteal pressure ulcers) Psych Exam: Positive: Mental status NL Diagnostic and Laboratory Diagnostic Review Radiologic images, relevant labs and pathology reports were personally reviewed and discussed with Ms. Montoya. Assessment and Plan Impression Assessment Ms. 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 She has been unable to receive optimal chemotherapy due to weakness, anemia, and electrolyte abnormalities. She is seen today for consideration of additional RT. She has been unable to receive chemotherapy due to poor PS as well as anemia and electrolyte dyscrasias. She has had marked progression in the left flank mass s/p RT, despite this she reports no additional left flank pain. She now however has RUQ pain, which may be related to cholelithiasis, or more likely the new large metastatic lesions there, many of which are peripheral and especially those in segment THAIS which appear to distend the capsule. For this pain and because she has been unable to receive chemotherapy, I offered palliative whole liver RT 21 Gy in 7 fractions which per RTOG 7605 has a 70-80% chance of improving pain related to liver metastases. It also has almost no risk of toxicity. For her current nausea I suggested she resume zofran TID, which was effective for her when she was receiving RT to the flank mass. She can hold compazine in reserve. She should also continue a bowel regimen, I suggested nightly miralax in addition to the stool softener she has on hand. Performance Status ECOG 3 Plan Consider palliative liver RT 21 Gy in 7 fractions She will alert us Zofran TID/compazine PRN for nausea Add miralax QHS to stool softener Medical oncology scheduled 11/08/20 Ms. Montoya was encouraged to call with questions or concerns in the interim per iod. Billing Statement Total time of [34] minutes was spent preparing for the visit [3], obtaining HPI [7], examining the patient [2], reviewing diagnostic tests [6], discussing management options [5], coordinating care [2], and writing this note [9]. RUBENS FRANKS MD Nov 03, 2020 15:26
== END ==
LOC: M ONCR 13:27
PROVIDERS: ATTEND General Practice
DX: C78.6 Secondary malignant neoplasm of retroperitoneum and peritoneum (principal); C78.7 Secondary malignant neoplasm of liver and intrahepatic bile duct; C55 Malignant neoplasm of uterus, part unspecified; D64.9 Anemia, unspecified; R11.0 Nausea; Z79.899 Other long term (current) drug therapy; Z88.2 Allergy status to sulfonamides; Z92.3 Personal history of irradiation

== ENCOUNTER 2020-11-18 14:08 | Outpatient (RCR) | payer MEDICARE ==
[~2020-11-18 14:08] MED LIST changes: +MS C30TA6 PO; +ONDANSETRON 4 MG As Ordered ONE; +ONDANSETRON 4 MG ORAL DISINTEGRATING TAB PO ONE; +[UNRECOGNIZED DRUG - CODE] PO
[2020-11-21] MEDS ORDERED: OXYC1TAB23 PO (06:59)
[2020-11-21] MEDS ORDERED: DOCU100C16 PO (06:59)
[2020-11-23] MEDS ORDERED: SCOP1PAT2 TOP (10:48)
[2020-11-23] MEDS ORDERED: REGL10TA6 PO (10:48)
[2020-11-23] MEDS ORDERED: ONDA8TAB10 PO (10:48)
[2020-11-23] MEDS ORDERED: NYST10006 TOP (10:48)
[2020-11-23] MEDS ORDERED: MORP1SOL SL ×2 (10:48→10:59)
[2020-11-24] MEDS ORDERED: XANA0.5T PO (14:45)
[2020-11-27] MEDS ORDERED: ONDANSETRON 4 MG ORAL DISINTEGRATING TAB ONE (08:39)
== END 2020-11-27 ==
LOC: M ONCR 14:08
PROVIDERS: ATTEND General Practice
DX: C78.7 Secondary malignant neoplasm of liver and intrahepatic bile duct (principal)
CPT/HCPCS: 77280; 77290; 77295; 77300; 77334; 77412; Q0162

== ENCOUNTER 2020-11-21 02:57 | Observation (INO) | payer MEDICARE ==
[~2020-11-21] VITALS: Ht 144.8 cm; Wt 78.6 kg
[~2020-11-21 02:57] MED LIST changes: -ONDANSETRON 4 MG As Ordered ONE; -ONDANSETRON 4 MG ORAL DISINTEGRATING TAB PO ONE
[2020-11-21] MEDS ORDERED: MORPHINE 2 MG/ML 1ML VIAL (J2270) IV ONE ×3 (03:20→07:50)
[2020-11-21 03:53] LABS: BASO # 0.3 10^3/uL (0.0-0.2); BASO % 0.4 % (0.0-1.0); EOS # 0.2 10^3/uL (0.0-0.5); EOS % 0.2 % (0.0-3.0); HEMATOCRIT 24.3 % (36.0-47.0); HEMOGLOBIN 7.8 g/dl (12.0-15.5); LYMPH # 1.3 10^3/uL (1.5-5.0); LYMPH % 1.7 % (24.0-44.0); MEAN CORPUSCULAR HEMOGLOBIN 31.3 pg (27.0-33.0); MEAN CORPUSCULAR HGB CONC 32.1 g/dl (32.0-36.5); MEAN CORPUSCULAR VOLUME 97.6 fl (80.0-96.0); MONO # 1.9 10^3/uL (0.0-0.8); MONO % 2.5 % (2.0-8.0); NEUTROPHILS # 69.5 10^3/uL (1.5-8.5); NEUTROPHILS % 90.2 % (36.0-66.0); PLATELET COUNT, AUTOMATED 258 10^3/uL (150-450); RED BLOOD COUNT 2.49 10^6/uL (4.00-5.40)
[2020-11-21] MEDS ORDERED: ONDANSETRON 4MG/2ML VIAL IV ONE ×2 (04:00→07:50)
[2020-11-21 04:13] LABS: WHITE BLOOD COUNT 77.1 10^3/uL (4.0-10.0)
[2020-11-21 04:30] LABS: ALBUMIN 1.9 GM/DL (3.2-5.2); ALT/SGPT 26 U/L (12-78); BILIRUBIN,DIRECT 0.4 MG/DL (0.0-0.2); BILIRUBIN,TOTAL 0.7 MG/DL (0.2-1.0); BLOOD UREA NITROGEN 30 MG/DL (7-18); CARBON DIOXIDE LEVEL 27 MEQ/L (21-32); CHLORIDE LEVEL 98 MEQ/L (98-107); CK-MB VALUE MASS < 1.0 NG/ML (<3.6); CPK CREATINE PHOSPHOKINASE 14 U/L (26-192); CREATININE FOR GFR 1.24 MG/DL (0.55-1.30); GLOMERULAR FILTRATION RATE 44.9 (>39); GLUCOSE, FASTING 85 MG/DL (70-100); LIPASE 14 U/L (73-393); MB/CK RELATIVE INDEX 7.14 (< OR =4); POTASSIUM SERUM 3.8 MEQ/L (3.5-5.1); SODIUM LEVEL 137 MEQ/L (136-145); TOTAL PROTEIN 5.4 GM/DL (6.4-8.2); TROPONIN I < 0.02 NG/ML (< 0.10)
[2020-11-21] MEDS ORDERED: NS 1,000 ML IV SCH (06:35)
[2020-11-21] MEDS ORDERED: DOCU100C16 PO (06:59)
[2020-11-21] MEDS ORDERED: OXYC1TAB23 PO (06:59)
[2020-11-21] MEDS ORDERED: MORPHINE 4 MG/ML 1ML VIAL/SYRINGE (J2270) IV ONE (07:50)
--- NOTE | 2020-11-21 08:18 | REP ---
INDICATION: pain. COMPARISON: Comparison [facility] September 12, 2012.. TECHNIQUE: AP view of the pelvis and AP and frogleg views of the left hip are provided. FINDINGS: The bony pelvic ring is intact. No pelvic or sacral fracture is seen. SI joints and symphysis pubis are unremarkable. Femoral heads are smooth and rounded. There is tendon insertion site spurring consistent with enthesopathy. Vascular calcification is observed. The left femoral head is smooth and rounded hip joint space is preserved. Periarticular soft tissues are unremarkable. No fracture is seen. IMPRESSION: Tendon insertion site spurring and vascular calcification. No acute bony abnormality. <Electronically signed by Mason Davalos > 11/21/20 [id number]
--- NOTE | 2020-11-21 08:22 | REP ---
INDICATION: pain. COMPARISON: Comparison is made with images from today's CT study of the abdomen and pelvis... TECHNIQUE: Five views of the lumbar spine are provided. FINDINGS: Lumbar vertebral body heights are preserved. The lateral rib radiographs are suboptimal. Parent leak, the patient was unable to move her arm out of the field of view and the lateral views are poorly penetrated. No malalignment is seen. AP and oblique views demonstrate vertebral body heights are preserved and normal alignment. There is discogenic spurring at L4-5 L3-4 and to a lesser extent L2-3. No bony destructive lesion is seen. Pedicles and posterior elements are intact. Sacrum and SI joints are unremarkable. Psoas margins are symmetric. There is vascular calcification in a normal caliber aorta. Sagittal multiplanar re-formation images from today's CT study of the abdomen demonstrates a grade 1 degenerative L5-S1 spondylolisthesis which measures 7 mm. IMPRESSION: Degenerative spondylosis changes. Suboptimal lateral projections. MPR images from CT study demonstrate 7 mm spondylolisthesis at L5-S1. Grade 1. <Electronically signed by Mason Davalos > 11/21/20 [id number]
--- NOTE | 2020-11-21 08:25 | REP ---
INDICATION: weakness. COMPARISON: Comparison chest x-ray October 18, 2020.. TECHNIQUE: Single-view AP chest x-ray. FINDINGS: EKG monitoring electrodes are seen. A right-sided Wvetba-L-Nmss catheter is again noted in place with its tip in the expected location of superior vena cava. Heart is mildly enlarged unchanged. There is blunting of the left lateral pleural angle consistent with a small quantity of left pleural fluid. There is fullness in the right hilar silhouette, possibly the right mediastinum. There is a 2.5 cm lung nodule projecting in the left perihilar region which is larger than on the October 18, 2020 study. No new infiltrate. IMPRESSION: Interval enlargement of a pulmonary nodule in the left perihilar region and fullness in the right hilus. Slight blunting left lateral pleural angle. <Electronically signed by Mason Davalos > 11/21/20 [id number]
--- NOTE | 2020-11-21 08:35 | REPVR ---
PROCEDURE INFORMATION: Exam: CT Abdomen And Pelvis Without Contrast Exam date and time: 11/21/2020 7:03 AM Age: 75 years old Clinical indication: Abdominal pain; Flank; Left; Additional info: Gen abd pain left flank cancer TECHNIQUE: Imaging protocol: Computed tomography of the abdomen and pelvis without contrast. Radiation optimization: All CT scans at this facility use at least one of these dose optimization techniques: automated exposure control; mA and/or kV adjustment per patient size (includes targeted exams where dose is matched to clinical indication); or iterative reconstruction. COMPARISON: CT ABD/PEL W/IV CONTRAST ONLY 10/18/2020 12:09 PM FINDINGS: Lungs: Right middle lobe calcified pulmonary parenchymal granuloma. A 18.9 mm noncalcified pulmonary nodule is noted in the posterior superior segment of the lingula (LOC -34.59), incompletely imaged. A 4.4 mm noncalcified pulmonary nodule is noted in the medial segment of the right middle lobe (LOC -10.59). Bilateral posterior pulmonary partial passive atelectasis. Pleural spaces: Moderate bilateral pleural effusions. Mediastinal space: Right hilar granulomatous christa calcifications are present. Liver: Interval significant increase in size of multiple previously existing hepatic lesions, largest single lesion measuring approximately 6.5 cm in the left lobe medial segment. Gallbladder and bile ducts: A single 23 mm gallstone is present in the distended gallbladder. No wall thickening or pericholecystic fluid identified. Pancreas: Severe pancreatic atrophy. No ductal dilatation or intrapancreatic mass. Spleen: The spleen is enlarged measuring 13.2 cm longitudinally. Medial upper anterior splenic 3.3 cm hypodensity, previously 2.0 cm. Adrenal glands: The left adrenal gland is not identified, likely invaded by the retroperitoneal mass. Unremarkable right adrenal gland. Kidneys and ureters: Right mid renal 2.0 mm calyceal calculus. Left renal hilar involvement by retroperitoneal tumor as below. No hydronephrosis/obstructive uropathy. Stomach and bowel: See "Retroperitoneal space" finding, otherwise unremarkable. Appendix: The vermiform appendix is normal. Intraperitoneal space: Nonspecific mild posterior pelvic peritoneal fluid. Retroperitoneal space: Interval increase in size of central and left retroperitoneal abdominal mass measuring approximately 13.4 x 13.2 x 11.7 cm, involving the left renal hilum inferiorly (series 201, image 64) and displacing the left kidney laterally and pancreas anteriorly. Some secondary nodular densities are present medial to the upper spleen measuring 17.7 mm and 16.9 mm. Additional nodule demonstrated adjacent to the stomach and left diaphragmatic tyron measuring 2.5 cm. Inferiorly the lesion appears to invade the upper left psoas muscle. Vasculature: Moderate aortic atherosclerotic calcification without aneurysm. The iliac arteries show moderate bilateral atherosclerotic calcifications without evidence of aneurysm. Calcified phleboliths are present in the lower pelvis bilaterally. LAD, LCx and RCA calcified coronary atherosclerosis. Lymph nodes: No enlarged lymph nodes. Urinary bladder: The urinary bladder is partially decompressed and somewhat difficult to assess. Reproductive: Bilateral tubal ligation clips are present. Bones/joints: Stable sclerotic focus posterior right upper iliac bone. Bilateral L5 spondylolysis. Grade 1 L5-S1 anterolisthesis. L5-S1 spondylosis with bilateral neural foraminal stenosis. Soft tissues: A tiny paraumbilical hernia containing only abdominal fat is noted. IMPRESSION: 1. Interval increase in size of central and left retroperitoneal abdominal mass . 2. Increase in hepatic metastatic disease. 3. Cholelithiasis with gallbladder luminal distension. Clinical correlation with the patient's specific symptomatology is recommended. Gallbladder sonography may be helpful if indicated. 4. Nonspecific mild posterior pelvic peritoneal fluid. 5. Mild splenomegaly. 6. Interval enlargement of splenic probable metastatic lesion. 7. Stable nonspecific sclerotic right iliac bone lesion. 8. Right renal calyceal lithiasis. 9. Moderate bilateral pleural effusions, increased. 10. Interval increase in pulmonary metastatic disease. Fleischner Society recommendations not given due to history of neoplasia. 11. Coronary atherosclerosis. COMMENTS: Consistent with the [employer]'s Incidental Findings Committee white paper (J Am Ainsley Radiol 2018): Any incidental renal lesion less than 1 cm or classified as too small to characterize, or any incidental cystic renal lesion characterized as simple-appearing, is likely benign. No follow-up imaging is recommended for these lesions per consensus recommendations based on imaging criteria. Electronically signed by: Handy Cevallos On 11/21/2020 08:35:25 AM
[2020-11-21] MEDS ORDERED: PIPERACILLIN/TAZOBACTAM SOD 4.5 GM in D5W MINI-BAG PLUS 50 ML IV ONE (08:45)
[2020-11-21 09:16] LABS: RSV AMPLIFICATION NEGATIVE (NEGATIVE)
[2020-11-21 09:23] VITALS: BP 113/59
[2020-11-21] MEDS ORDERED: BISACODYL 10 MG SUPP PR PRN (09:35)
[2020-11-21] MEDS ORDERED: SCOPOLAMINE 1MG TRANSDERMAL PATCH TOP PRN (09:35)
[2020-11-21] MEDS ORDERED: HYOSCYAMINE SULFATE 0.125 MG SUBL TABLET PO PRN (09:35)
[2020-11-21] MEDS ORDERED: ATROPINE SULFATE 1% OP SOLN 2 ML BTL SL PRN (09:35)
[2020-11-21] MEDS ORDERED: LORazepam 2 MG/ML VIAL IV PRN (09:35)
[2020-11-21] MEDS ORDERED: ONDANSETRON 4MG/2ML VIAL IV PRN (09:35)
[2020-11-21] MEDS ORDERED: FLEET ENEMA PR PRN (09:35)
[2020-11-21] MEDS ORDERED: LORazepam 1 MG TAB PO PRN (09:35)
[2020-11-21] MEDS ORDERED: ACETAMINOPHEN TAB 650MG DOSE (2X325MG) PO PRN (09:35)
[2020-11-21] MEDS ORDERED: MORPHINE 10MG/0.5ML ORAL CONCENTRATE SOLUTION U/D SL PRN (09:35)
--- NOTE | 2020-11-21 10:07 | HPEPDOC ---
General Date of Admission Nov 21, 2020 at 02:58 Date of Service: Nov 21, 2020 Chief Complaint The patient is a 75-year-old female admitted with a reason for visit of Abdominal Pain. Source: Patient Exam Limitations: No limitations History of Present Illness Patient is 75 years old female with past medical history of undifferentiated metastatic carcinoma with sarcomatoid features presented to hospital with abdominal pain, deconditioning, nausea and vomiting. Patient recently received few cycles of palliative chemotherapy and radiation. In ER patient was found to have a leukocytosis of 77.1, hemoglobin 7.8, CT abdomen pelvis showed Interval increase in size of central and left retroperitoneal abdominal mass, Increase in hepatic metastatic disease. Interval enlargement of splenic probable metastatic lesion,Interval increase in pulmonary metastatic disease. I discussed with family the progression of the cancer and overall very poor prognosis. Her who is the power of city attorney expressed his wishes to transfer the patient to [facility] status Home Medications Scheduled Docusate Sodium (Docusate Sodium) 100 Mg Capsule, 100 MG PO BID, (Reported) Metoprolol Succinate (Metoprolol Succinate) 25 Mg Tab.er.24h, 12.5 MG PO DAILY, (Reported) Omeprazole (Omeprazole) 20 Mg Capsule.dr, 20 MG PO DAILY, (Reported) Prednisone (Prednisone) 5 Mg Tablet, 10 MG PO DAILY, (Reported) Scheduled PRN Alprazolam (Alprazolam) 0.25 Mg Tablet, 0.25 MG PO TID PRN for anxiety, (Reported) Ondansetron HCl (Ondansetron HCl) 8 Mg Tablet, 8 MG PO Q6H PRN for NAUSEA OR VOMITING, (Reported) Oxycodone HCl/Acetaminophen (Oxycodone-Acetaminophen 5-325) 1 Each Tablet, 2 TABS PO Q4H PRN for pain, (Reported) Allergies Coded Allergies: Sulfa (Sulfonamide Antibiotics) (Verified Allergy, Unknown, 10/18/20) Past Medical History Medical History Left retroperitoneal metastatic mass, 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 Right knee replacement 2006. Social History * Smoker: Denies Alcohol: Denies Drugs: denies A-FIB/CHADSVASC A-FIB History Current/History of A-Fib/PAF?: No Current PO Anticoag Therapy: No Review of Systems Constitutional: Reports: Malaise, Weakness Eyes: Denies: Pain ENT: Denies: Head Aches Skin: Denies: Rash Pulmonary: Denies: Dyspnea Cardiovascular: Denies: Chest Pain Gastrointestinal: Reports: Nausea, Vomiting, Abdominal Pain Genitourinary: Denies: Dysuria Hematologic: Denies: Bruising Endocrine: Denies: Polydipsia Musculoskeletal: Denies: Neck Pain Neurological: Denies: Weakness Psych: Reports: Mood Normal Physical Examination General Exam: Positive: Alert, Cooperative Eye Exam: Positive: PERRLA ENT Exam: Positive: Atraumatic Neck Exam: Positive: Supple Chest Exam: Positive: Diminished Heart Exam: Positive: Rate Normal Telemetry: Positive: No significant arrhythmia Abdomen Exam: Positive: Soft, Hepatospenomegaly Extremity Exam: Negative: Clubbing Skin Exam: Positive: Nl turgor and temperature Neuro Exam: Positive: Cranial Nerves 3-12 NL Psych Exam: Positive: Oriented x 3 Vital Signs Vital Signs Date Time Temp Pulse Resp B/P (MAP) Pulse Ox O2 Delivery O2 Flow Rate FiO2 11/21/20 09:23 96.8 111 16 113/59 96 Room Air Laboratory Data Labs 24H Laboratory Tests 2 11/21/20 03:32: Immature Granulocyte % (Auto) 5.0H, Neutrophils (%) (Auto) 90.2H, Lymphocytes (%) (Auto) 1.7L, Monocytes (%) (Auto) 2.5, Eosinophils (%) (Auto) 0.2, Basophils (%) (Auto) 0.4, Neutrophils # (Auto) 69.5H, Lymphocytes # (Auto) 1.3L, Monocytes # (Auto) 1.9H, Eosinophils # (Auto) 0.2, Basophils # (Auto) 0.3H, Nucleated Red Blood Cells % (auto) 0.0, Anion Gap 12, Glomerular Filtration Rate 44.9, Calcium Level 8.0L, Total Bilirubin 0.7, Direct Bilirubin 0.4H, Aspartate Amino Transf (AST/SGOT) 50H, Alanine Aminotransferase (ALT/SGPT) 26, Alkaline Phosphatase 757H, Total Creatine Kinase 14L, Creatine Kinase MB < 1.0, Creatine Kinase MB Relative Index 7.14H, Troponin I < 0.02, Total Protein 5.4L, Albumin 1.9L, Albumin/Globulin Ratio 0.5L, Lipase 14L 11/21/20 08:10: Coronavirus (COVID-19)(PCR) NEGATIVE, Influenza Type A (RT-PCR) NEGATIVE, Influenza Type B (RT-PCR) NEGATIVE, Respiratory Syncytial Virus (PCR) NEGATIVE CBC/BMP Laboratory Tests 11/21/20 03:32 Assessment/Plan Patient is 75 years old female with past medical history of undifferentiated metastatic carcinoma with sarcomatoid features presented to hospital with abdominal pain, deconditioning, nausea and vomiting. Patient recently received few cycles of palliative chemotherapy and radiation. In ER patient was found to have a leukocytosis of 77.1, hemoglobin 7.8, CT abdomen pelvis showed Interval increase in size of central and left retroperitoneal abdominal mass, Increase in hepatic metastatic disease. Interval enlargement of splenic probable metastatic lesion,Interval increase in pulmonary metastatic disease. I discussed with family the progression of the cancer and overall very poor prognosis. 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
[2020-11-21 10:15] VITALS: BP 127/79
[2020-11-21] MEDS: MORPHINE 2 MG/ML 1ML VIAL (J2270) IV PRN ×2 (11:16→22:22)
[2020-11-21] MEDS: ONDANSETRON 4MG/2ML VIAL IV PRN ×3 (11:42→22:26)
[2020-11-21] MEDS ORDERED: NYSTATIN 100,000 UNITS/GM TOPICAL PWD 15 GM TOP PRN (21:55)
[2020-11-22] MEDS: ONDANSETRON 4MG/2ML VIAL IV PRN ×4 (04:21→18:46)
[2020-11-22] MEDS: MORPHINE 2 MG/ML 1ML VIAL (J2270) IV PRN ×3 (04:22→20:31)
[2020-11-22] MEDS ORDERED: MORPHINE 10MG/0.5ML ORAL CONCENTRATE SOLUTION U/D SL PRN (08:25)
[2020-11-22] MEDS ORDERED: METOCLOPRAMIDE INJ 10MG/2ML VIAL (J2765 PER 1) IV PRN (08:25)
[2020-11-22] MEDS ORDERED: LORazepam 0.5 MG TAB PO PRN (10:25)
--- NOTE | 2020-11-22 13:20 | RADENCPD ---
Date/Time of Encounter Date of Encounter: Nov 22, 2020 Time of Encounter: 13:19 Encounter Note Maria G has been admitted and transitioned to [facility] with plan for hospice evaluation. Will cancel remaining palliative RT to liver. RUBENS FRANKS MD Nov 22, 2020 13:20
[2020-11-23] MEDS: ONDANSETRON 4MG/2ML VIAL IV PRN ×6 (00:36→22:44)
[2020-11-23] MEDS: MORPHINE 2 MG/ML 1ML VIAL (J2270) IV PRN ×6 (00:37→21:09)
[2020-11-23] MEDS: OMEPRAZOLE 20 MG CAP PO SCH (04:42)
--- NOTE | 2020-11-23 05:30 | ECGEPIP ---
[facility] - ED Test Date: 2020-11-21 Pat Name: ERIKA MAYA Department: Room: - Gender: Female Director Community Organization: [facility] : 1945 Requested By: EDWINA Ray Order Number: [id number] Reading MD: Hugo Ervin Measurements Intervals [place] Rate: 123 P: 26 ND: 142 QRS: 40 QRSD: 70 T: 36 QT: 308 QTc: 440 Interpretive Statements Sinus tachycardia Anterolateral infarct , age undetermined SIMILAR TO 10/18/20 Electronically Signed on 11-23-2020 5:30:37 EDT by Hugo Ervin
[2020-11-23] MEDS: predniSONE 5 MG TAB PO SCH (06:11)
[2020-11-23] MEDS ORDERED: MORP1SOL SL ×2 (10:48→10:59)
[2020-11-23] MEDS ORDERED: SCOP1PAT2 TOP (10:48)
[2020-11-23] MEDS ORDERED: NYST10006 TOP (10:48)
[2020-11-23] MEDS ORDERED: ONDA8TAB10 PO (10:48)
[2020-11-23] MEDS ORDERED: REGL10TA6 PO (10:48)
--- NOTE | 2020-11-23 13:54 | DS.PDOC ---
Discharge Summary General Date of Admission Nov 21, 2020 at 02:58 Date of Discharge 11/23/20 Discharge Summary PROCEDURES PERFORMED DURING STAY: [None]. ADMITTING DIAGNOSES: Carcinosarcoma Abdominal pain Leukocytosis (leucocytosis) DISCHARGE DIAGNOSES: Carcinosarcoma Abdominal pain Leukocytosis (leucocytosis) COMPLICATIONS/CHIEF COMPLAINT: Abdominal Pain. 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 Patient recently received few cycles of palliative chemotherapy and radiation. In ER patient was found to have a leukocytosis of 77.1, hemoglobin 7.8, CT abdomen pelvis showed Interval increase in size of central and left retroperitoneal abdominal mass, Increase in hepatic metastatic disease. Interval enlargement of splenic probable metastatic lesion,Interval increase in pulmonary metastatic disease. I discussed with family the progression of the cancer and overall very poor prognosis. 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 ALLERGIES: Please see below. PHYSICAL EXAMINATION ON DISCHARGE: Physical Examination General Exam: Positive: Alert, Cooperative Eye Exam: Positive: PERRLA ENT Exam: Positive: Atraumatic Neck Exam: Positive: Supple Chest Exam: Positive: Diminished Heart Exam: Positive: Rate Normal Telemetry: Positive: No significant arrhythmia Abdomen Exam: Positive: Soft, Hepatospenomegaly Extremity Exam: Negative: Clubbing Skin Exam: Positive: Nl turgor and temperature Neuro Exam: Positive: Cranial Nerves 3-12 NL Psych Exam: Positive: Oriented x 3 LABORATORY DATA: Please see below. PROGNOSIS: Poor ACTIVITY: [As tolerated]. DIET: Regular DISPOSITION: Home with hospice ITEMS TO FOLLOWUP ON ON OUTPATIENT: Follow-up with hospice care DISCHARGE CONDITION: [Stable]. TIME SPENT ON DISCHARGE: 40minutes. Vital Signs/I&Os Vital Signs Date Time Temp Pulse Resp B/P (MAP) Pulse Ox O2 Delivery O2 Flow Rate FiO2 11/23/20 00:37 16 Room Air 11/21/20 10:15 121 127/79 (95) 95 11/21/20 09:23 96.8 I&O- Last 24 Hours up to 6 AM 11/23/20 06:00 Intake Total 460 ml Output Total 150 ml Balance 310 ml Discharge Medications Scheduled Docusate Sodium (Docusate Sodium) 100 Mg Capsule, 100 MG PO BID, (Reported) Metoclopramide HCl (Reglan) 10 Mg Tablet, 1 TAB PO QID before food and bedtime Prednisone (Prednisone) 5 Mg Tablet, 10 MG PO DAILY, (Reported) Scheduled PRN Alprazolam (Alprazolam) 0.25 Mg Tablet, 0.25 MG PO TID PRN for anxiety, (Reported) Alprazolam (Xanax) 0.5 Mg Tablet, 0.5 MG PO BIDP PRN for anxiety Morphine Sulfate (Morphine Sulfate Concentrate) 100 Mg/5 Ml Solution, 2 MG SL Q1HP PRN for SEVERE PAIN (PS 8-10) Nystatin (Nystop) 60 Gm Powder, 0 DOSE TOP BIDP PRN for RASH Ondansetron HCl (Ondansetron HCl) 8 Mg Tablet, 8 MG PO Q4H PRN for NAUSEA OR VOMITING Oxycodone HCl/Acetaminophen (Oxycodone-Acetaminophen 5-325) 1 Each Tablet, 2 TABS PO Q4H PRN for pain, (Reported) Scopolamine (Transderm-Scop) 1 Each Patch.td.3, 1 MG TOP Q3DP PRN for EXCESSIVE SECRETIONS Allergies Coded Allergies: Sulfa (Sulfonamide Antibiotics) (Verified Allergy, Unknown, 10/18/20) JUSTO CARLTON DO Nov 23, 2020 13:54
[2020-11-24] MEDS: MORPHINE 2 MG/ML 1ML VIAL (J2270) IV PRN (04:03)
[2020-11-24] MEDS: ONDANSETRON 4MG/2ML VIAL IV PRN ×2 (04:03→08:54)
[2020-11-24] MEDS: OMEPRAZOLE 20 MG CAP PO SCH (05:46)
[2020-11-24] MEDS: predniSONE 5 MG TAB PO SCH (06:52)
[2020-11-24] MEDS ORDERED: SODIUM CHLORIDE 0.9% INJ 10 ML SYR IV PRN (09:20)
[2020-11-24] MEDS ORDERED: XANA0.5T PO (14:45)
== END 2020-11-24 11:14 | disposition hospice, home (50) ==
LOC: M ED 02:57 → M ED INP 02:58 → ENRESERV 10:15 → M MSPAV 10:39
PROVIDERS: ADMIT Internal Medicine; ATTEND Internal Medicine
DX: C78.6 Secondary malignant neoplasm of retroperitoneum and peritoneum (principal); C78.7 Secondary malignant neoplasm of liver and intrahepatic bile duct; D72.829 Elevated white blood cell count, unspecified; I10 Essential (primary) hypertension; E11.9 Type 2 diabetes mellitus without complications; R11.2 Nausea with vomiting, unspecified; Z92.21 Personal history of antineoplastic chemotherapy; Z92.3 Personal history of irradiation; Z79.899 Other long term (current) drug therapy; Z88.2 Allergy status to sulfonamides; M35.3 Polymyalgia rheumatica; E66.9 Obesity, unspecified
CPT/HCPCS: 71045; 72110; 73502; 74176; 80048; 80076; 82550; 82553; 83690; 84484; 85025; 86850; 86900; 86901; 86920; 87631; 93005; 93041; 96361; 96365; 96375; 96376; 99285; G0378; J1642; J2270; J2405; J2543; J2765; J7512; P9016